=== PATIENT | female | born 2000 | race Caucasian/White ===

== ENCOUNTER 2024-07-01 10:36 | Emergency (ER) | payer BC, SELFPAY ==
[2024-07-01 10:44] VITALS: BP 118/76; PULSE 92; RESP 18; TEMP 36.7; O2SAT 99; BMI 43.2
--- NOTE | 2024-07-01 11:06 | ED.GENADULT ---
HPI - General Adult General Date Seen: 07/01/24 Chief complaint: Abdominal Pain Stated complaint: cramping-6 weeks Time Seen by Provider: 07/01/24 11:05 History of Present Illness HPI narrative: 24-year-old , generally healthy female who is . She is currently 6 weeks 4 days and is confident about LMP and predicted ovulation. She presents to the ER this morning for evaluation of abdominal cramping that woke her up from sleep in the middle the night. She has been having some intermittent left lower quadrant pain for the past several days but she was awoken from sleep last night with a more intense episode of left lower quadrant cramping. It has now spread more generally to her abdomen. It is in her left lower quadrant, primarily. She is not having any vaginal bleeding, vaginal discharge, or fluid leakage. She was able to take Tylenol at night for the cramping and was able to go back to sleep. However the pain is not really gone away today. She talked to the triage line and they sent her here to the ER. She is scheduled for her 1st checkup on July 17 but has not seen obstetric so yet. She has no previous abdominal surgeries. No other GI pathologies such as Crohn's disease. Bowel movements have been normal lately. She has been mildly nauseous but not vomiting. She had a little bit of burning with urination last night but no other urinary symptoms. No hematuria. No vaginal bleeding or discharge. Related Data Home Medications ?Medication ?Instructions ?Recorded ?Confirmed albuterol sulfate 90 mcg/actuation 1 - 2 puff inhalation Q4H PRN 07/01/24 07/01/24 aerosol inhaler wheezing calcium carbonate 2 tab PO .Every other day 07/01/24 07/01/24 Allergies Allergy/AdvReac Type Severity Reaction Status Date / Time No Known Drug Allergies Allergy Verified 07/01/24 11:25 [facility] Social History Smoking Status: Never smoker Do you use any of these nicotine containing products: None How often do you have a drink containing alcohol: never AUDIT-C Alcohol total score: 0 Non-prescribed substance use: denies use Exam Narrative: Exam Narrative: Constitutional: Appears well-developed and well-nourished. Alert. Conversant. Non toxic. HENT: Head: Atraumatic. Nose: Nose normal. Mouth/Throat: Oral mucosa is clear and moist. no trismus. Pharynx normal. Eyes: Conjunctivae normal. EOM normal. Pupils equal, round, and reactive to light. No scleral icterus. Neck: Normal range of motion. Neck supple. No tracheal deviation present. Cardiovascular: Normal rate, regular rhythm. No gallop. No friction rub. No murmur heard. Symmetric radial artery pulses Pulmonary/Chest: Effort normal. No stridor. No respiratory distress. No wheezes. No rales. No rhonchi . No tenderness. Abdominal: Soft. Bowel sounds normal. No distension. No mass. Left lower quad> left upper quadrant or right lower quadrant> epigastric and barium tenderness. She is quite tender in the left lower quadrant and winces with palpation No rebound. No guarding. No CVA tenderness Musculoskeletal: RUE: Normal range of motion. No tenderness. No deformity LUE: Normal range of motion. No tenderness. No deformity RLE: Normal range of motion. No edema. No tenderness. No deformity LLE: Normal range of motion. No edema. No tenderness. No deformity Neurological: Alert and oriented to person, place, and time. Normal strength. CN II-VII intact. No sensory deficit. GCS eye subscore is 4. GCS verbal subscore is 5. GCS motor subscore is 6. Normal coordination Skin: Skin is warm and dry. No rash noted. No pallor. Normal capillary refill. Psychiatric: Normal mood. Normal affect. Const: Vital Signs, click to edit/add: Vital Signs - 24 hr 07/01/24 10:44 Temperature 98.0 F Pulse Rate [Pulse Oximeter] 92 Respiratory Rate 18 Blood Pressure [Ri ght Upper Arm] 118/76 Pulse Oximetry 99 Oxygen Delivery Me thod Room Air Course Vital Signs Vital signs: Initial Vital Signs Temperature 98.0 F 07/01/24 10:44 Temperature Source Temporal Artery Scan 07/01/24 10:44 Pulse Rate 92 07/01/24 10:44 Respiratory Rate 18 07/01/24 10:44 Blood Pressure 118/76 07/01/24 10:44 Blood Pressure Mean 90 07/01/24 10:44 Blood Pressure Position Sitting 07/01/24 10:44 Pulse Oximetry 99 07/01/24 10:44 Oxygen Delivery Method Room Air 07/01/24 10:44 Vital Signs Temperature 98.0 F 07/01/24 10:44 Pulse Rate 92 07/01/24 10:44 Respiratory Rate 18 07/01/24 10:44 Blood Pressure 118/76 07/01/24 10:44 Pulse Oximetry 99 07/01/24 10:44 Oxygen Delivery Method Room Air 07/01/24 10:44 Temperature 98.0 F 07/01/24 10:44 Pulse Rate 92 07/01/24 10:44 Respiratory Rate 18 07/01/24 10:44 Blood Pressure 118/76 07/01/24 10:44 Pulse Oximetry 99 07/01/24 10:44 Oxygen Delivery Method Room Air 07/01/24 10:44 Medical Decision Making MDM Narrative Medical decision making narrative: Very pleasant 24-year-old female presenting to the ER today with her for evaluation of left lower quadrant cramping and abdominal pain. She is currently about 6 weeks 4 days by LMP . She is not having any vaginal bleeding or fluid leakage. She does note that she has had some pelvic cramping for the past several days but the cramping that happened overnight last night was worse. No other symptoms other than perhaps a little bit of dysuria last night. No fever. No diarrhea. No vomiting. She has not presyncopal or lightheaded or dizzy Workup here shows normal hemoglobin, stable vital signs. No evidence for anemia or internal bleeding. Pelvic ultrasound shows a intrauterine gestational sac, slightly smaller than her estimated dates by LMP. No evidence for any adnexal abnormality to suggest ectopic or any free fluid. She is not having any vaginal bleeding to clearly suggest threatened miscarriage. She knows that her blood type is A positive. Other laboratory workup is reassuring. Urinalysis is essentially negative. Trace leukocyte esterase but no pyuria, negative nitrite. Urine culture pending. White count normal. Overall abdominal exam is tender left lower quadrant but not peritoneal. At this point I do not think she needs CT imaging to look for other causes of abdominal pain such as colitis, diverticulitis, appendicitis. Patient is comfortable with the plan for outpatient monitoring at home. Needs repeat pelvic ultrasound within 5-7 days. She will call the OB office today to arrange an ER follow-up visit. Precautions for return to the ER reviewed. Questions answered. Lab Data Labs: Lab Results 07/01/24 07/01/24 Range/Units 11:31 12:10 WBC 8.25 (4.50-11.00) K/uL RBC 4.64 (4.00-5.20) m/uL Hgb 13.9 (12.0-16.0) gm/dL Hct 41.6 (33.0-51.0) % MCV 90 (80-100) fL MCH 30 (26-34) pg MCHC 33 (32-36) gm/dL RDW Coeff of Antonietta 12.6 (11.5-15.5) % Plt Count 245 (140-440) K/uL Neut % (Auto) 64.5 (42.0-72.0) % Lymph % (Auto) 25.8 (20-44) % Morgan % (Auto) 7.9 (0.0-11.0) % Eos % (Auto) 1.3 (0.0-7.0) % Baso % (Auto) 0.4 (0.0-3.0) % Neut # (Auto) 5.32 (1.7-7.0) K/uL Lymph # (Auto) 2.13 (0.90-2.90) K/uL Morgan # (Auto) 0.70 (0.00-0.90) K/UL Eos # (Auto) 0.11 (0.00-0.50) K/uL Baso # (Auto) 0.03 (0.00-0.30) K/uL Abs Immat Gran (auto) 0.01 (0.00-0.30) K/uL Imm/Tot Granulo (auto) 0.1 % Sodium 137 (135-149) mmol/L Potassium 4.2 (3.6-5.1) mmol/L Chloride 105 (96-114) mmol/L Carbon Dioxide 24 (20-32) mmol/L Anion Gap 8 (7-15) mEq/L BUN 7 (5-24) mg/dL Creatinine 0.6 (0.5-1.5) mg/dL Estimated Creat Clear 128.98 Estimated GFR 128 ml/min Glucose 102 (60-115) mg/dL Calcium 9.3 (8.4-10.6) mg/dL HCG, Quant 67917.00 mIU/mL Urine Color Yellow (Yellow) Urine Appearance Slightly Cloudy A (Clear) Urine pH 6.5 (5.0-8.5) Ur Specific [place] 1.020 (1.000-1.030) Urine Protein Negative (Negative) Urine Glucose (UA) Negative (Negative) Urine Ketones Negative (Negative) Urine Blood Negative (Negative) Urine Nitrite Negative (Negative) Urine Bilirubin Negative (Negative) Urine Urobilinogen 0.2 (0.2-1.0) Ur Leukocyte Esterase Trace A (Negative) Urine RBC 0-2 (0-2) Urine WBC 0-2 (0-5) Ur Squamous Epith Cells Few (None-Few) Amorphous Sediment Moderate A (None) Urine Bacteria Few A (None) Imaging Data US pelvic: Attestation: I have reviewed the pertinent imaging results. Radiologist's impression: IMPRESSION: 1. Single intrauterine gestational sac with estimated gestational age of 5 weeks and 6 days. No pole is visualized, likely secondary to early gestational age. Can consider repeating the examination in 7-10 days. 2. The remainder of the examination is unremarkable. Discharge Plan Discharge Clinical Impression: Abdominal pain, LLQ, First trimester Patient Disposition: Home, Self-Care Condition: Stable Instructions: (ED), Pelvic Pain (ED) Additional Instructions: As we discussed, please come back to the ER right away if you have any concerns, for instance if you have worsening pain, vaginal bleeding, fever, dizziness or lightheadedness,. You can use Tylenol as needed to help with the cramping and pain. You can also try warm packs or cool packs for the cramping. Please follow-up with her Gy[facility] Clinic within 5-7 days for a repeat ultrasound. Remember, if you get worse, come back to the ER right away Prescriptions: No Action albuterol sulfate 90 mcg/actuation HFA aerosol inhaler 1 - 2 puff INHALATION Q4H PRN (Reason: wheezing) calcium carbonate [Tums] 2 tab PO .Every other day Follow Up/Referrals: Provider,Not a Local [Primary Care Provider] - Stand Alone Forms: [employer] Communication Info Instructions
[2024-07-01 11:41] LABS: Basophils Absolute Auto 0.03 K/uL (0.00-0.30); Basophils Percent Auto 0.4 % (0.0-3.0); Eosinophils Absolute Auto 0.11 K/uL (0.00-0.50); Eosinophils Percent Auto 1.3 % (0.0-7.0); Hematocrit 41.6 % (33.0-51.0); Hemoglobin* 13.9 gm/dL (12.0-16.0); Immature Granulocytes Abs Auto 0.01 K/uL (0.00-0.30); Immature Granulocytes Pct Auto 0.1 %; Lymphocytes Absolute Auto 2.13 K/uL (0.90-2.90); Lymphocytes Percent Auto 25.8 % (20-44); Mean Corpuscular HGB Conc 33 gm/dL (32-36); Mean Corpuscular Hemoglobin 30 pg (26-34); Mean Corpuscular Volume 90 fL (80-100); Monocytes Percent Auto 7.9 % (0.0-11.0); Neutrophils Absolute Auto 5.32 K/uL (1.7-7.0); Neutrophils Percent Auto 64.5 % (42.0-72.0); Platelet Count* 245 K/uL (140-440); RDW Coefficient of Variation % 12.6 % (11.5-15.5); Red Blood Count 4.64 m/uL (4.00-5.20); White Blood Count* 8.25 K/uL (4.50-11.00)
[2024-07-01 11:45] LABS: Slide Review Reflex No
[2024-07-01 11:54] LABS: Chloride* 105 mmol/L (96-114); Potassium* 4.2 mmol/L (3.6-5.1); Sodium* 137 mmol/L (135-149)
[2024-07-01 11:57] LABS: Anion Gap 8 mEq/L (7-15); Blood Urea Nitrogen* 7 mg/dL (5-24); Calcium* 9.3 mg/dL (8.4-10.6); Carbon Dioxide* 24 mmol/L (20-32); Creatinine* 0.6 mg/dL (0.5-1.5); Est. Creatinine Clearance* 128.98; Estimated Glomerular Filt Rate 128 ml/min; Glucose* 102 mg/dL (60-115)
--- OUTSIDE RECORDS SUMMARY | 2024-07-01 12:16 | XMS_ITS | Encounter Summary ---
Author Organization [facility] Address [address] [place] [address]. [place] [address] Care Team Providers Care Quill Collector Name Role Phone No Ref-Primary, Physician Primary Care Provider Montse Bucio APRN POLICE CLERK Unavailable [phone] Encounter Details Date Type Department Care Team (Late st Contact Info) Description 02/22/2024 MyC Medical Advice [facility] [address] [place] [address] Montse Bucio APRN POLICE CLERK [address] [place], [place] [id number] Social History Tobacco Use Types Packs/Day Years Used Date Smoking Tobacco: Never Smokeless Tobacco: Never PHQ-2 Answer Date Recorded PHQ-2 Score 0 02/20/2024 Food Insecurity Answer Date Recorded Within the past 12 months, d id you worry that your food would run out before you got money to buy more? No 02/20/2024 Within the past 12 months, d id the food you bought just not last and you didn t have money to get more? No 02/20/2024 Housing Stability Answer Date Recorded Do you have housing? (Rioin g is defined as stable permanent housing and does not include staying ouside in a car, in a tent, in an abandoned building, in an overnight assisted, or couch-surfing.) Yes 02/20/2024 Are you worried about losing your housing? No 02/20/2024 Financial Resource Strain Answer Date R ecorded Within the past 12 months, h ave you or your family members you live with been unable to get utilities (heat, electricity) when it was really needed? No 02/20/2024 Transportation Needs Answer Date Record ed Within the past 12 months, h as lack of transportation kept you from medical appointments, getting your medicines, non-medical meetings or appointments, work, or from getting things that you need? No 02/20/2024 Interpersonal Safety Answer Date Record ed Do you feel physically and e motionally safe where you currently live? Yes 02/20/2024 Within the past 12 months, h ave you been hit, slapped, kicked or otherwise physically hurt by someone? No 02/20/2024 Within the past 12 months, h ave you been humiliated or emotionally abused in other ways by your partner or ex-partner? No 02/20/2024 Comments No Sex and Gender Information Value Date Recorded Sex Assigned at Female 02/20/2024 7:49 AM CDT Legal Sex Female 11:15 AM CDT Gender Identity Female 02/20/2024 7:49 AM CDT Sexual Orientation Not on file documented as of this encounter Plan of Treatment Not on file documented as of this encounter Visit Diagnoses Not on filedocumented in this encounter Care Teams Quill Collector Relationship Specialty Start Date End Date No Ref-Primary, Physician PCP - General 11/12/23 Montse Bucio APRN CNP [id number] [place] [address] Assigned PCP 03/22/24 documented as of this encounter
--- OUTSIDE RECORDS SUMMARY | 2024-07-01 12:16 | XMS_ITS | Clinical Summary ---
Author Organization [facility] Address [address] [place] [address]. [place] [address] Care Team Providers Care Information Systems Director Name Role Phone No Ref-Primary, Physician Primary Care Provider Montse Bucio APRN FUR BLOWER Unavailable [phone] Allergies No known active allergies Medications neomycin-polymy olivier-hydrocortis one (CORTISPORIN) 3.5-99343-5 otic solutionIndicat ions:Infective otitis externa, left Place 3 drops in ear(s) 4 times daily. 10 mL 4 Active albuterol (PROAIR HFA/PROVENTIL HFA/VENTOLIN HFA) 108 (90 Base) MCG/ACT inhalerIndicati ons:Bronchitis with acute wheezing Inhale 2 puffs into the lungs every 6 hours as needed for shortness of breath, wheezing or cough. 18 g 4 Active terbinafine (LAMISIL) 1 % external creamIndication s:Intertrigo Apply topically 2 times daily. 15 g 2 4 Active fluticasone-ruth anterol (BREO ELLIPTA) 200-25 MCG/ACT inhalerIndicati ons:Subacute cough Inhale 1 puff into the lungs daily. 1 each 3 4 Active Active Problems Problem Noted Date Diagnosed Date Acanthosis nigricans, acquired 05/10/2018 Immunizations Name Administration Dates Next Due Comvax (HIB/HepB) 1999,1999 DT (PEDS <7y) 12/20/2004 DTAP (<7y) 12/20/2004, 2,1999,10/12,1999 HEPATITIS A (PEDS 12M-18Y) 10/26/2014,11/05/2013 HIB, Unspecified 08/15/2000,1999, 0 HPV Quadrivalent 02/07/2013,08/30/2012, 3 Hepatitis B, Peds 08/15/2000,1999,08/18/19 00 Influenza (IIV3) PF 02/07/2013, 0,01/16/2009,07/01 Influenza Vaccine >6 months,quad, PF 02/17/2023, 02/19/2021 Influenza,INJ,MDCK,PF,Quad >6mo(Flucelvax) 03/03/2022 MMR 12/20/2004,08/15/2000 Meningococcal ACWY (Menactra ) 01/24/2017,11/05/2013 Pneumococcal (PCV 7) 1999,1999 Poliovirus, inactivated (IPV) 12/20/2004 ,1999,1999,08/17 TDAP (Adacel,Boostrix) 01/03/2023,11/20/2011 Social History Tobacco Use Types Packs/Day Years Used Date Smoking Tobacco: Never Smokeless Tobacco: Never Tobacco Cessation:Counseling Given: Not Answered PHQ-2 Answer Date Recorded PHQ-2 Score 0 [...] in an abandoned building, in an overnight detention, or couch-surfing.) Yes 02/20/2024 Are you worried [...] AM CDT Sexual Orientation Not on file Last Filed Vital Signs Vital Sign Reading Time Taken Comments Blood Pressure 118/80 02/20/2024 10:03 AM CDT Pulse 84 02/20/2024 10:03 AM CDT Temperature 37.2 C (98.9 F) 02/20/2024 10:03 AM CDT Respiratory Rate 24 02/20/2024 10:03 AM CDT Oxygen Saturation 100% 02/20/2024 10:03 AM CDT Inhaled Oxygen Concentration - - Weight 115.7 kg (255 lb) 02/20/2024 10:03 AM CDT Height 165.1 cm (5' 5) 02/20/2024 10:03 AM CDT Body Mass Index 42.43 02/20/2024 10:03 AM CDT Plan of Treatment Health Maintenance Due Date Last Done Comments ADVANCE CARE PLANNING 1999 ANNUAL REVIEW OF HM ORDERS 1999 HIV SCREENING 2014 HEPATITIS C SCREENING 2017 PAP 2020 YEARLY PREVENTIVE VISIT 08/06/2021 08/07/19 21, 10/26/2014, 11/05/2013 COVID-19 Vaccine ( season) 2023 03/03/2022, 03/16/2021, 08/19/2020, Additional history exists INFLUENZA VACCINE (#1) 2023 , 03/03/2022, 02/19/2021, Additional history exists PHQ-2 (once per calendar year) 2024 02/20/2024 DTAP/TDAP/TD IMMUNIZATION (8 - Td or Tdap) 01/03/2033 01/03/2023, 11/20/2011, 12/20/2004, Additional history exists ZOSTER IMMUNIZATION (1 of 2) 2049 Pneumococcal Vaccine: Pediatrics (0 to 5 Years) and At-Risk Patients (6 to 49 Years) Aged Out 1999, 1999 No longer eligibl e based on patient's age to complete this topic HEPATITIS B IMMUNIZATION Completed 001, 1999, 1999, Additional history exists CHLAMYDIA SCREENING Discontinued 07/26/2012 HPV IMMUNIZATION Completed 02/07/2013, 06/2012, 07/26/2012 MENINGITIS IMMUNIZATION Completed 01/24/2017, 11/05 MENINGITIS B IMMUNIZATION Aged Out No longer eligible based on patient's age to complete this topic Insurance [employer] Care Teams Information Systems Director Relationship Specialty Start Date End Date No Ref-Primary, Physician PCP - General 7/15/24 Montse Bucio APRN [facility] [id number] [place] [address] Assigned PCP 03/22/24
--- OUTSIDE RECORDS SUMMARY | 2024-07-01 12:16 | XMS_ITS | Clinical Summary ---
Author Organization [facility] Address [address] [place] [id number] Care Team Providers Care Oral Surgeon Name Role Phone Pcp, No Primary Care Provider Unavailabl e Allergies No known active allergies Medications silver sulfADIAZINE (SILVADENE) 1 % creamIndications: Sunburn, second degree Apply topically to affected area(s) two times daily. 50 g 4 Active calcium carbonate (Tums) 200 mg calcium (500 mg) chewable tablet Chew 500 mg by mouth 4 times daily if needed. Active cetirizine HCl (ZYRTEC ORAL) Take by mouth once daily if needed. Active predniSONE (DELTASONE) 50 mg tab tabletIndications :Upper respiratory tract infection, unspecified type One po QAM as needed symptoms. 10 Tablet 4 Active codeine-guaiFENes in 10-100 mg/5 mL liquidIndications :Upper respiratory tract infection, unspecified type 2 teaspoons p.o. q8hr as needed for cough/sleep 120 mL 4 Active albuterol HFA (PRO-AIR; VENTOLIN; PROVENTIL) 90 mcg/actuation inhalerIndication s:Influenza-like illness Inhale 1-2 Puffs by mouth every 4 hours if needed for Shortness Of Breath or Wheezing for up to 5 days. 1 Each 5 06/09/19 25 Active Problems Problem Noted Date Diagnosed Date Acanthosis nigricans, acquired 05/10/2018 Acute recurrent maxillary sinusitis 05/10/2018 Encounters Date Type Department Care Team Description 06/04/2024 11:30 AM ACCOUNTING MACHINE OPERATOR Office Visit [facility] [address] [address] [place] [id number] Jerrica Hager PA Weak (Weakness, cough, and stuffy nose. Patient states it has been uncomfortable to take a deep breath. Patient states she has been exposed to RSV and influenza in the past week. Patient states taking Tylenol last night.) 06/04/2024 Travel from Last 3 Months Immunizations Name Administration Dates Next Due COVID-19 vaccine (Moderna 100mcg/0.5mL) PF, MDV 08/19/2020,07/21/2020 DT (Age < 7 years) 12/20/2004 DTaP 12/20/2004, 2,1999,10/12,1999 HIB-HepB (Comvax) 1999,1999 Hepatitis A (Peds) 10/26/2014,11/05/2013 Hepatitis B (Peds) 08/15/2000,1999 Hib Conjugate, Unspecified 08/15/2000,1999 Human Papilloma Virus Vaccine 02/07/2013 ,08/30/2012,07/26/2012,07/26 Inactivated Polio Vaccine 12/20/2004,01/2000,1999,08/17 Influenza, IIV3 (Age >=3 years) 02/08/20 13,02/12/2010,01/16/2009,07/01 Influenza, IIV4 02/17/2023,02/19/2021 Influenza,CCIIV4 PRESERV FREE 03/03/2022 MMR 12/20/2004,08/15/2000 Meningococcal Vaccine (Menactra) 01/24/2017,12/2013 Pneumococcal conj 7-Valent (Prevnar 7) 0,1999 Tdap 01/03/2023,11/20/2011 Family History Medical History Relation Name Comments Good Health Brother Good Health Father Thyroid Disease Mother Good Health Sister Relation Name Status Comments Brother Father Mother Sister Social History Tobacco Use Types Packs/Day Years Used Date Smoking Tobacco: Never Smokeless Tobacco: Never Tobacco Cessation:Counseling Given: No Alcohol Use Standard Drinks/Week Comments No 0 (1 standard drink = 0.6 oz pur e alcohol) PHQ-2 Answer Date Recorded PHQ-2 TOTAL SCORE 0 11/10/2022 Social Connections Answer Date Recorded Do you often feel lonely or isolated from those around you? 0 11/12/2023 Financial Resource Strain Answer Date R ecorded Difficulty of Paying Living Expenses 3 11/12/2023 Difficulty of Paying Living Expenses Not on file 11/12/2023 Food Insecurity Answer Date Recorded Do you worry your food will run out before you are able to buy more? 1 11/12/2023 Transportation Needs Answer Date Record ed Does lack of transportation keep you from medica l appointments? 1 11/12/2023 Does lack of transportation keep you from work, meetings or getting things that you need? 1 11/12/2023 Housing Stability Answer Date Recorded What is your housing situation today? 1 11/12/2023 Utilities Answer Date Recorded Do you have trouble paying f or utilities (for example, heat, electricity, water, phone)? 1 11/12/2023 Comments Unknown Sex and Gender Information Value Date Recorded Sex Assigned at Not on file Legal Sex Female 7:59 AM ACCOUNTING MACHINE OPERATOR Gender Identity Female 10/06/2020 7:14 PM CDT Sexual Orientation Not on file Obstetrics History Last Filed Vital Signs Vital Sign Reading Time Taken Comments Blood Pressure 124/80 06/04/2024 11:34 AM ACCOUNTING MACHINE OPERATOR Pulse 88 06/04/2024 11:34 AM ACCOUNTING MACHINE OPERATOR Temperature 36.4 C (97.6 F) 06/04/2024 11:34 AM ACCOUNTING MACHINE OPERATOR Respiratory Rate 18 06/04/2024 11:3 4 AM ACCOUNTING MACHINE OPERATOR Oxygen Saturation 98% 06/04/2024 11: 34 AM ACCOUNTING MACHINE OPERATOR Inhaled Oxygen Concentration - - Weight 116.1 kg (255 lb 14. 4 oz) 03/07/2024 9:29 AM ACCOUNTING MACHINE OPERATOR Height 167.6 cm (5' 6) 08/30/2023 9:13 AM CDT with shoes on Body Mass Index 41.3 08/30/2023 9:13 AM CDT Plan of Treatment Upcoming Encounters Date Type Department Care Team (Late st Contact Info) Description 07/02/2024 12:45 PM ACCOUNTING MACHINE OPERATOR Phone OB Encounter [facility] [address] [place] [address] Health Maintenance Due Date Last Done Comments HIV for age 15-65 2014 Hepatitis C screening for age 18-79 2017 Pap test for age 21-65 2020 Depression screening for age 12+ 11/11/2023 11/10/2022, 08/08/2020, 08/06/2020, Additional history exists COVID-19 vaccine series ( - 2023- season) 2023 02/17/2023, 03/03/2022, 03/16/2021, Additional history exists Influenza for age 9-49 12/30/2023 , 03/03/2022, 02/19/2021, Additional history exists BMI (ht and wt on same day) for age 18+ 08/29/2024 08/30/2023, 11/10/2022, 11/26/2020, Additional history exists Tetanus booster 01/03/2033 01/03/2023, 11/20/2011 Pneumococcal series for age 6-49 Aged Out 1999, 1999 No longer eligibl e based on patient's age to complete this topic HPV series for age 9-26 Completed 02/08/20 13, 08/30/2012, 07/26/2012, Additional history exists Tdap Completed 01/03/2023, 11/20/2011 Procedures Procedure Name Priority Date/Time Associated Diagnosis Comments COVID/FLU/RSV PANEL Routine 06/04/2024 1 1:54 AM ACCOUNTING MACHINE OPERATOR Influenza-like illness from Last 3 Months Results * COVID/FLU/RSV PANEL (06/04/2024 11:54 AM ACCOUNTING MACHINE OPERATOR) COVID 19 [facility] Negative Negative 06/04/2024 9:49 PM ACCOUNTING MACHINE OPERATOR [facility] INFLUENZA A PCR Negative 5 9:49 PM ACCOUNTING MACHINE OPERATOR [facility] INFLUENZA B PCR Negative 5 9:49 PM ACCOUNTING MACHINE OPERATOR [facility] Respiratory Syncytial Virus Negative 06/04/2024 9:49 PM ACCOUNTING MACHINE OPERATOR [facility] Swab NASOPHARYNGEAL SWAB / Unknown Non-Blood / Unknown 06/04/2024 11:54 AM ACCOUNTING MACHINE OPERATOR 06/04/2024 12:02 PM ACCOUNTING MACHINE OPERATOR us Jerrica OCONNOR MICROBIOLOGY Final Re sult [facility] [address] [place] [address], from Last 3 Months Insurance [facility] [id number] [place] [id number] [address] [address] [id number] [id number] [place] [id number] [facility] Care Teams Oral Surgeon Relationship Specialty Start Date End Date Pcp, No . PCP - General 03/01/12
--- OUTSIDE RECORDS SUMMARY | 2024-07-01 12:16 | XMS_ITS | Encounter Summary ---
Author Organization [place] Address [address] [place] [address]. [place] [address] Care Team Providers Care Driver/Sales Workers Name Role Phone No Ref-Primary, Physician Primary Care Provider Montse Bucio APRN ROLLING MACHINE TENDER Unavailable [phone] Encounter Details Date Type Department Care Team (Late st Contact Info) Description 02/20/2024 MyC Medical Advice [facility] [address] [place] [address] Montse Bucio APRN ROLLING MACHINE TENDER [address] [place], [place] [id number] Social History Tobacco Use Types Packs/Day Years [...] in an abandoned building, in an overnight skilled nursing, or couch-surfing.) Yes 02/20/2024 Are you worried [...] on file documented as of this encounter Miscellaneous Notes * Telephone Encounter - Montse Bucio APRN CNP - 02/22/2024 1:32 PM CDT I phoned patient to assure that she understood that a new inhaler was sent for her. And that she had gotten the message sent in another string. * Telephone Encounter - Elizabeth Keith RN - 02/20/2024 3:12 PM CDT See message. Pt waiting for prednisone prescription to be sent to pharmacy. PA request already submitted to PA team. Resent as high priority and called PA team for urgent assistance. Spoke to Evonne, she will look into this. Elizabeth Keith RN, BSN [facility] documented in this encounter Plan of Treatment Not on file documented as of this encounter Visit Diagnoses Not on filedocumented in this encounter Care Teams Driver/Sales Workers Relationship Specialty Start Date End Date No Ref-Primary, Physician PCP - General 11/12/23 Montse Bucio APRN [facility] [address] [place] [address] Assigned PCP 03/22/24 documented as of this encounter
[2024-07-01 13:17] LABS: Appearance Urine Slightly Cloudy (Clear); Bilirubin Urine Negative (Negative); Blood Urine Negative (Negative); Color Urine Yellow (Yellow); Glucose Urine Negative (Negative); Ketones Urine Negative (Negative); Leukocyte Esterase Urine Trace (Negative); Nitrite Urine Negative (Negative); Protein Urine Negative (Negative); Urobilinogen Urine 0.2 (0.2-1.0); pH Urine 6.5 (5.0-8.5)
[2024-07-01 13:23] LABS: RBC Urine 0-2 (0-2); Squamous Epithelial Cell Urine Few (None-Few); WBC Urine 0-2 (0-5)
[2024-07-01 13:24] LABS: Amorphous Sediment Urine Moderate; Bacteria Urine Few
== END 2024-07-01 13:21 | disposition home or self-care (01) ==
PROVIDERS: Emergency Provider Emergency Medicine
DX: R10.32 Left lower quadrant pain (principal); Z33.1 Pregnant state, incidental
CPT/HCPCS: 36415; 76817; 80048; 81001; 84702; 85025; 87086; 93976; 99283; 99284

== ENCOUNTER 2024-07-17 12:50 | Outpatient (CLI) | payer BC, SELFPAY ==
--- NOTE | 2024-07-17 13:00 | CRLHL7_ITS ---
For Patients: As a result of the Century Cures Act, medical imaging exams and procedure reports are released immediately into your electronic medical record. You may view this report before your referring provider. If you have questions, please contact your health care provider. OB ULTRASOUND LESS THAN 14 WEEKS, 07/17/2024 CLINICAL HISTORY: Dating and viability. COMPARISON: 07/01/2024. TECHNIQUE: Real time tracy scale imaging of the fetus was performed transvaginally. FINDINGS: LMP: 05/17/2024. SUNDAR by LMP: 02/21/2025. GA: 8 weeks 5 days. CRL: 1.7 cm, 8 weeks 0 days. SUNDAR: 02/26/2025. FHR: 169 bpm. GEST SAC: 2.7 cm, appears within normal limits. YOLK SAC: 4.2 mm, appears within normal limits. RIGHT OVARY: 2.6 x 2.2 x 2.1 cm, within normal limits. LEFT OVARY: 3.4 x 2.4 x 2.2 cm, within normal limits. IMPRESSION: 1. Single living intrauterine with sonographic gestational age 8 weeks 0 days and sonographic due date 02/26/2025. 2. Crescentic subchorionic hemorrhage on the left measures 2.2 x 2.1 x 0.4 cm. 3. Simple right paraovarian cyst measures 1.5 x 0.9 x 1.3 cm. Stefano Farr M.D. Diagnostic Radiologist [email or web address] Transcribed: 10:30 am DW/Dictated by: Stefano Farr MD @ 07/18/2024 9:04:00 AM (Electronically Signed)
== END 2024-07-17 12:51 | disposition home or self-care (01) ==
LOC: US 12:52
PROVIDERS: Visit Provider Physician Assistant
DX: Z34.91 Encounter for supervision of normal pregnancy, unspecified, first trimester (principal); O34.81 Maternal care for other abnormalities of pelvic organs, first trimester; N83.291 Other ovarian cyst, right side; Z3A.08 8 weeks gestation of pregnancy
CPT/HCPCS: 76817; 83021; 84443; 86592; 86703; 86704; 86706; 86762; 86787; 86803; 86850; 86900; 86901; 87086; 87340

== ENCOUNTER 2024-07-17 14:29 | Outpatient (CLI) | payer BC, SELFPAY | END 2024-07-17 14:30 | disposition home or self-care (01) | PROVIDERS: Visit Provider Physician Assistant | DX: Z34.91 Encounter for supervision of normal pregnancy, unspecified, first trimester (principal); Z3A.08 8 weeks gestation of pregnancy | CPT/HCPCS: 83020; 83021; 84443; 85660; 86592; 86703; 86704; 86706; 86762; 86787; 86803; 86850; 86900; 86901; 87086; 87340 ==

== ENCOUNTER 2024-08-13 14:45 | Outpatient (CLI) | payer BC, SELFPAY | END 2024-08-13 14:46 | disposition home or self-care (01) | PROVIDERS: Visit Provider Midwife | DX: E03.9 Hypothyroidism, unspecified (principal) | CPT/HCPCS: 84443 ==

== ENCOUNTER 2024-09-04 22:10 | Emergency (ER) | payer BC, SELFPAY ==
--- OUTSIDE RECORDS SUMMARY | 2024-09-04 22:12 | XMS_ITS | Encounter Summary ---
Author Organization [place] Address [address] [place] [address]. [place] [address] Care Team Providers Care Histology Assistant Name Role Phone No Ref-Primary, Physician Primary Care Provider Montse Bucio APRN LUGGAGE MAKER Unavailable [phone] Encounter Details Date Type Department Care Team (Late st Contact Info) Description 02/20/2024 MyC Medical Advice [facility] [address] [place] [address] Montse Bucio APRN LUGGAGE MAKER [address] [place], [place] [phone] Social History Tobacco Use Types Packs/Day Years [...] Answer Date Recorded Do you have housing? (Housin g is defined as stable permanent housing and does not include staying outside in a car, in a tent, in an abandoned building, in an overnight senior care, or couch-surfing.) Yes 02/20/2024 Are you worried [...] look into this. Elizabeth Keith RN, BSN [facility] documented in this encounter Plan of Treatment Not on file documented as of this encounter Visit Diagnoses Not on filedocumented in this encounter Care Teams Histology Assistant Relationship Specialty Start Date End Date No Ref-Primary, Physician PCP - General 11/12/23 Montse Bucio APRN [facility] [address] [place] [address] Assigned PCP 03/22/24 documented as of this encounter
--- OUTSIDE RECORDS SUMMARY | 2024-09-04 22:12 | XMS_ITS | Clinical Summary ---
Author Organization [facility] Address [address] [place] [address] Care Team Providers Care Culinary Chef Name Role Phone Pcp, No Primary Care Provider Unavailabl e Allergies No known active allergies Medications calcium carbonate (Tums) 200 mg calcium (500 mg) chewable tablet Chew 500 mg by mouth 4 times daily if needed. Active cetirizine HCl (ZYRTEC ORAL) Take by mouth once daily if needed. Active albuterol HFA 90 mcg/actuation inhaler Inhale 2 Puffs by mouth every 6 hours if needed. 02/14/20 24 Active levothyroxine 25 mcg tablet Take 1 Tablet by mouth once daily. 07/28/19 25 Active ondansetron 4 mg disintegrating tablet DISSOLVE 1 TABLET IN MOUTH EVERY 8 HOURS NEEDED for nausea and vomiting.* 08/14/19 25 Active promethazine 25 mg tablet TAKE ONE TABLET BY MOUTH EVERY FOUR TO SIX HOURS NEEDED FOR NAUSEA AND VOMITING* 08/20/19 25 Active PNV no.95/ferrous fum/folic ac ( ORAL) Take by mouth. Active amoxicillin 500 mg tabletIndications: Acute bacterial bronchitis Take 2 Tablets (1,000 mg) by mouth three times daily for 5 days. 30 Tablet 08/31/19 25 025 Active silver sulfADIAZINE (SILVADENE) 1 % creamIndications:S unburn, second degree Apply topically to affected area(s) two times daily. 50 g 11/12/19 24 025 Discontin ued(*Yuko ent states no longer taking) predniSONE (DELTASONE) 50 mg tab tabletIndications: Upper respiratory tract infection, unspecified type One po QAM as needed symptoms. 10 Tablet 03/07/20 24 025 Discontin ued(*Yuko ent states no longer taking) codeine-guaiFENesi n 10-100 mg/5 mL liquidIndications: Upper respiratory tract infection, unspecified type 2 teaspoons p.o. q8hr as needed for cough/sleep 120 mL 03/07/20 24 025 Discontin ued(*Yuko ent states no longer taking) Active Problems Problem Noted Date Diagnosed Date Acanthosis nigricans, acquired 05/10/2018 Acute recurrent maxillary sinusitis 05/10/2018 Estimated Date of Delivery Comme nts Yes 02/21/2025 Encounters Date Type Department Care Team Description 08/30/2024 1:05 PM CDT Office Visit [facility] [address] [place] [address] Elle Chavez NP Cough (Complains of cough, sinus congestion and pressure, sore throat x 1 week /Shortness of breath ) 08/30/2024 [place] 07[place]02/2024 [place] [facility] [place] [address] [facility] [place] [address] MD Appointment from Last 3 Months Immunizations Immunization Administration Dates Next Due COVID-19 vaccine (Moderna [...] FREE 03/03/2022 MMR 12/20/2004,08/15/2000 Meningococcal Vaccine (Menactra) 01/24/2017,07/0 12/2013 Pneumococcal conj 7-Valent (Prevnar 7) 0,1999 Tdap [...] example, heat, electricity, water, phone)? 1 11/12/2023 Estimated Date of Delivery Comme nts Yes 02/21/2025 Sex and Gender Information Value Date Recorded Sex Assigned at Not on file Legal Sex Female 7:59 AM HEEL TURNER Gender Identity Female 10/06/2020 7:14 PM CDT Sexual Orientation Not on file Obstetrics History Para Term AB IAB SAB Ectopic Multiple Livin g Live Births 1 Date Outcome GA Total Labor Labor/2nd/3rd Weight Sex Type Anes PTL Nisreen A1 A5 Name Clin Current Last Filed Vital Signs Vital Sign Reading Time Taken Comments Blood Pressure 110/70 08/30/2024 1:07 PM CDT Pulse 102 08/30/2024 1:07 PM CDT Temperature 36.8 C (98.3 F) 08/30/2024 1:07 PM CDT Respiratory Rate 18 06/04/2024 11:3 4 AM HEEL TURNER Oxygen Saturation 99% 08/30/2024 1:07 PM CDT Inhaled Oxygen Concentration - - Weight 112.9 kg (249 lb) 08/30/2024 1:07 PM CDT Height 167.6 cm (5' 6) 08/30/2023 9:13 AM CDT w ith shoes on Body Mass Index 40.19 08/30/2023 9:13 AM CDT Plan of Treatment Health Maintenance Due Date Last Done Comments HIV for age 15-65 2014 Hepatitis C screening for age 18-79 2017 Pap test for age 21-65 2020 Depression screening for age 12+ 11/11/2023 11/10/2022, 08/08/2020, 08/06/2020, Additional history exists COVID-19 vaccine series ( season) 2023 02/17/2023, 03/03/2022, 03/16/2021, Additional history exists BMI (ht and wt on same day) for age 18+ 08/29/2024 08/30/2023, 11/10/2022, 11/26/2020, Additional history exists Influenza Vaccine (Season Ended) 2024 02/17/2023, 03/03/2022, 02/19/2021, Additional history exists RSV vaccine for adults or (1 - Risk 1-dose series) 12/29/2024 Tetanus booster 01/03/2033 01/03/2023, 11/20/2011 Pneumococcal series for age 6-49 Aged Out 1999, 1999 No longer eligibl e based on patient's age to complete this topic HPV series for age 9-26 Completed 02/08/20 13, 08/30/2012, 07/26/2012, Additional history exists Tdap Completed 01/03/2023, 11/20/2011 Insurance [employer] [place] [employer] [id number] [place] [id number] [place] [id number] [id number] [place] [id number] [facility] Care Teams Culinary Chef Relationship Specialty Start Date End Date Pcp, No . PCP - General 03/01/12
--- OUTSIDE RECORDS SUMMARY | 2024-09-04 22:12 | XMS_ITS | Encounter Summary ---
Author Organization [facility] Address [address] [place] [address]. [place] [address] Care Team Providers Care Face Burler Name Role Phone No Ref-Primary, Physician Primary Care Provider Montse Bucio APRN TRANSACTION PROCESSOR Unavailable [phone] Encounter Details Date Type Department Care Team (Late st Contact Info) Description 02/22/2024 MyC Medical Advice [facility] [address] [place] [address] Montse Bucio APRN TRANSACTION PROCESSOR [address] [place], [place] [id number] Social History Tobacco Use Types Packs/Day Years [...] in an abandoned building, in an overnight nursing home, or couch-surfing.) Yes 02/20/2024 Are you worried [...] on filedocumented in this encounter Care Teams Face Burler Relationship Specialty Start Date End Date No Ref-Primary, Physician PCP - General 11/12/23 Montse Bucio APRN TRANSACTION PROCESSOR [address] [place] [address] Assigned PCP 03/22/24 documented as of this encounter
--- OUTSIDE RECORDS SUMMARY | 2024-09-04 22:12 | XMS_ITS | Clinical Summary ---
Author Organization [place] Address [address] [place] [address]. [place] [address] Care Team Providers Care Social Work Faculty Member Name Role Phone No Ref-Primary, Physician Primary Care Provider Montse Bucio APRN SPOTLIGHT OPERATOR Unavailable [phone] Allergies No known active allergies Medications neomycin-polymy olivier-hydrocortis one (CORTISPORIN) 3.5-17835-4 otic solutionIndicat ions:Infective otitis externa, left Place [...] Diagnosed Date Acanthosis nigricans, acquired 05/10/2018 Immunizations Immunization Administration Dates Next Due Comvax (HIB/HepB) 1999,1999 DT (PEDS <7y) 12/20/2004 DTAP (<7y) 12/20/2004, 2,1999,10/12,1999 HIB, Unspecified 08/15/2000,1999, 0 HPV Quadrivalent 02/07/2013,08/30/2012, 3 Hepatitis A (Vaqta/Havrix)(P eds 12m-18y) 10/26/2014,11/05/2013 Hepatitis B, Peds (Engerix-B/Recombivax HB) 08/15/2000,1999,1999 Influenza (IIV3) PF 02/07/2013, 0,01/16/2009,07/01 Influenza Vaccine >6 months,quad, PF 02/17/2023, 02/19/2021 Influenza,INJ,MDCK,PF,Quad >6mo(Flucelvax) 03/03/2022 MMR (MMRII) 12/20/2004,08/15/2000 Meningococcal ACWY (Menactra ) 01/24/2017,11/05/2013 Pneumococcal [...] in an abandoned building, in an overnight halfway, or couch-surfing.) Yes 02/20/2024 Are you worried [...] 2017 PAP 2020 YEARLY PREVENTIVE VISIT 08/06/2021 08/07/19, 10/26/2014, 11/05/2013 COVID-19 Vaccine ( season) 2023 03/03/2022, 03/16/2021, 08/19/2020, Additional history exists PHQ-2 (once per calendar year) 2024 02/20/2024 INFLUENZA VACCINE (Season Ended) 2024 02/17/2023, 03/03/2022, 02/19/2021, Additional history exists DTAP/TDAP/TD IMMUNIZATION (8 - Td or Tdap) [...] this topic Insurance [employer] Care Teams Social Work Faculty Member Relationship Specialty Start Date End Date No Ref-Primary, Physician PCP - General 11/12/23 Montse Bucio APRN [facility] [address] [place] [address] Assigned PCP 03/22/24
[2024-09-04 22:21] VITALS: BP 123/79; PULSE 88; RESP 22; TEMP 36.6; O2SAT 100; BMI 40.8
--- NOTE | 2024-09-04 22:48 | CRLHL7_ITS ---
For Patients: As a result of the Century Cures Act, medical imaging exams and procedure reports are released immediately into your electronic medical record. You may view this report before your referring provider. If you have questions, please contact your health care provider. INDICATION: SOB. TECHNIQUE: Chest 2 views. COMPARISON: None. FINDINGS: Cardiovascular and mediastinum: Heart size is normal. Unremarkable mediastinum. Lungs and pleural spaces: Lungs are clear. No sign of infiltrate or mass. No sign of pleural effusion. No pneumothorax. Bones and soft tissues: No significant findings. IMPRESSION: No acute or significant findings. Dictated by Stefano Galicia MD @ 09/04/2024 11:57:20 PM (Electronically Signed)
--- OUTSIDE RECORDS SUMMARY | 2024-09-04 23:00 | XMS_ITS | Clinical Summary ---
Author Organization [place] Address [address] [place] [address]. [place] [address] Care Team Providers Care Confectionery Laboratory Manager Name Role Phone No Ref-Primary, Physician Primary Care Provider Montse Bucio APRN OFFBEARER Unavailable [phone] Allergies No known active allergies Medications neomycin-polymy olivier-hydrocortis one (CORTISPORIN) 3.5-42075-5 otic solutionIndicat ions:Infective otitis externa, left Place [...] in an abandoned building, in an overnight alf, or couch-surfing.) Yes 02/20/2024 Are you worried [...] this topic Insurance [employer] Care Teams Confectionery Laboratory Manager Relationship Specialty Start Date End Date No Ref-Primary, Physician PCP - General 11/12/23 Montse Bucio APRN [facility] [address] [place] [address] Assigned PCP 03/22/24
--- OUTSIDE RECORDS SUMMARY | 2024-09-04 23:00 | XMS_ITS | Encounter Summary ---
Author Organization [place] Address [address] [place] [address]. [place] [address] Care Team Providers Care Microsoft Net Developer Name Role Phone No Ref-Primary, Physician Primary Care Provider Montse Bucio APRN INTAKE WORKER Unavailable [phone] Encounter Details Date Type Department Care Team (Late st Contact Info) Description 02/22/2024 MyC Medical Advice [facility] [address] [place] [address] Montse Bucio APRN INTAKE WORKER [address] [place], [place] [phone] Social History Tobacco Use Types Packs/Day Years [...] in an abandoned building, in an overnight group home, or couch-surfing.) Yes 02/20/2024 Are you [...] on filedocumented in this encounter Care Teams Microsoft Net Developer Relationship Specialty Start Date End Date No Ref-Primary, Physician PCP - General 11/12/23 Montse Bucio APRN INTAKE WORKER [address] [place] [address] Assigned PCP 03/22/24 documented as of this encounter
--- OUTSIDE RECORDS SUMMARY | 2024-09-04 23:00 | XMS_ITS | Clinical Summary ---
Author Organization [facility] Address [address] [place] [address] Care Team Providers Care Cut Plug Packer Name Role Phone Pcp, No Primary Care [...] Description 08/30/2024 1:05 PM CDT Office Visit [facility] [address] [place] [address] Elle Chavez NP Cough (Complains of cough, sinus congestion and pressure, sore throat x 1 week /Shortness of breath ) 08/30/2024 Travel 07/02/2024 Telephone [facility] [place] [address] [facility] [place] [address] MD Appointment from Last 3 [...] on file Legal Sex Female 7:59 AM FIRE OBSERVER Gender Identity Female 10/06/2020 7:14 PM CDT [...] Respiratory Rate 18 06/04/2024 11:3 4 AM FIRE OBSERVER Oxygen Saturation 99% 08/30/2024 1:07 PM CDT [...] Tdap Completed 01/03/2023, 11/20/2011 Insurance [employer] [place] ADVANTAGE [id number] [place] [id number] [place] [id number] [id number] [place] [id number] [facility] Care Teams Cut Plug Packer Relationship Specialty Start Date End Date Pcp, No . PCP - General 03/01/12
--- OUTSIDE RECORDS SUMMARY | 2024-09-04 23:00 | XMS_ITS | Encounter Summary ---
Author Organization [facility] Address [address] [place] [address]. [place] [address] Care Team Providers Care Rn Private Duty Name Role Phone No Ref-Primary, Physician Primary Care Provider Montse Bucio APRN CORKING MACHINE OPERATOR Unavailable [phone] Encounter Details Date Type Department Care Team (Late st Contact Info) Description 02/20/2024 MyC Medical Advice [facility] [address] [place] [address] Montse Bucio APRN CORKING MACHINE OPERATOR [address] [place], [place] [id number] Social History Tobacco Use Types Packs/Day Years [...] in an abandoned building, in an overnight custodial, or couch-surfing.) Yes 02/20/2024 Are you worried [...] look into this. Elizabeth Keith RN, BSN [facility] documented in this encounter Plan of Treatment Not on file documented as of this encounter Visit Diagnoses Not on filedocumented in this encounter Care Teams Rn Private Duty Relationship Specialty Start Date End Date No Ref-Primary, Physician PCP - General 11/12/23 Montse Bucio APRN [facility] [address] [place] [address] Assigned PCP 03/22/24 documented as of this encounter
--- NOTE | 2024-09-04 23:08 | ED.SOB ---
HPI - SOB/Dyspnea General Date Seen: 09/04/24 Chief Complaint: Shortness of Breath/Dyspnea Stated Complaint: 16 weeks , shortness of breath Time Seen by Provider: 09/04/24 22:36 Source: patient Mode of arrival: ambulatory Limitations: no limitations History of Present Illness HPI Narrative: patient is a 24-year-old female currently 16 weeks presenting to the emergency department for shortness of breath. She states the symptoms have been going on and off for the past couple weeks. She was seen few weeks ago and was tested negative for viral swabs for and was sent home with inhaler but no spacer. Was seen again 6 days ago and was again told it was viral symptoms. She was feeling better 4 days ago but then over the past day symptoms seem to be getting worse again. She feels like she is having intermittent wheezing. Has been told in the past she may have had viral associated asthma but has never had a formal diagnosis of asthma. Is not aware of any sick contacts. She spoke to her OB provider and was told to come to the emergency department for evaluation. She has no history of blood clots. Has not noticed any lower extremity swelling or recent surgeries. States she will occasionally have chest pain when she takes a deep breath on the left side. This is new for her. Has not had any fevers or chills. Denies abdominal pain, diarrhea, constipation, headache, lightheadedness, weakness, numbness. Related Data Home Medications ?Medication ?Instructions ?Recorded ?Confirmed albuterol sulfate 90 mcg/actuation 1 - 2 puff inhalation Q4H PRN 07/01/24 09/04/24 aerosol inhaler wheezing calcium carbonate 2 tab PO .Every other day 07/01/24 08/13/24 FPP-teiz-WG-omega 3-fat com #1 27 cap PO 07/17/24 08/13/24 mg-1 mg-300 mg capsule doxylamine succinate 25 mg tablet 25 mg PO QHS PRN 08/13/24 09/04/24 (Unisom (doxylamine)) Previous Rx's ?Medication ?Instructions ?Recorded levothyroxine 25 mcg tablet 25 mcg PO QDAY #60 tabs 07/25/24 ondansetron 4 mg disintegrating 4 mg PO Q8H PRN nausea and 08/13/24 tablet vomiting #30 tabs promethazine 25 mg tablet 25 mg PO Q4-6H PRN nausea and 08/19/24 vomiting #30 tabs Allergies Allergy/AdvReac Type Severity Reaction Status Date / Time No Known Drug Allergies Allergy Verified 08/13/24 14:19 Review of Systems Status of ROS: Reports: 10 or more systems reviewed and unremarkable except as noted in History and below [facility] History BMI 40.0-44.9, adult ?Z68.41 - Body mass index [BMI] 40.0-44.9, adult (ICD-10) Subclinical hypothyroidism ?E03.8 - Other specified hypothyroidism (ICD-10) Surgical History [place] teeth removed ?K08.409 - Partial loss of teeth, unspecified cause, unspecified class (ICD-10) History of tonsillectomy and adenoidectomy ?Z90.89 - Acquired absence of other organs (ICD-10) Family History Mother Thyroid disease Maternal Grandmother Diabetes Paternal Grandfather Diabetes Paternal Grandmother Breast cancer Social History Narrative: SOCIAL??? Education: Some college? Work: Day care? Partner: , Daquan??? Lives with: Together with ??? Pets: None at home? Abuse: Denies? Special Diet: Denies Ok with a blood transfusion: yes Culture or moravian beliefs: None ?? RISK FACTORS??? Exercise Times/wk: None??? Hx of Depression and/or Anxiety/other mood disorder: None??? Seat Belt Use: Routinely Smoking: Never Alcohol/day: Denies while ? Caffeine: Coffee, inconsistently, few times per week? Drug Use: Denies?? Chicken Pox: Neither as child nor vaccinated?? MRSA: No What is your current living situation?: I presently have a place to live Problems where you live: no known problems In the past 12 months, utilities in danger of being shut off: no In past 12 months, lack of transportation kept you from medical appts, meetings, work, or getting things needed for daily living: no In the past 12 mos, have been you worried that your food would run out before you had money to buy more?: never true In the past 12 mos, the food you bought just didn't last and you didn't have money to buy more?: never true Smoking Status: Never smoker Do you use any of these nicotine containing products: None How often do you have a drink containing alcohol: never AUDIT-C Alcohol total score: 0 Non-prescribed substance use: denies use How often does anyone, including family, friends and others, physically hurt you: never How often does anyone, including family, friends and others, insult or talk down to you: never How often does anyone, including family, friends and others, threaten you with harm: never How often does anyone, including family, friends and others, scream or curse at you: never Exam Narrative: Exam Narrative: Const: Well-nourished, Well-developed, in mild distress Eyes: PERRL, no conjunctival injection, and symmetrical lids HENT: Atraumatic external nose and ears. Moist mucous membranes. Neck: Symmetric, trachea midline, No thyromegaly. CVS: RRR, No murmurs or gallops. Peripheral pulses 2+ and equal in all extremities RESP: Unlabored respiratory effort. Clear to auscultation bilaterally. GI: Nontender/Nondistended, No rebound or guarding. MSK:Extremities w/o deformity, Normal Active ROM Skin: Warm, Dry. No rashes or lesions. Neuro: Normal Muscle tone, No focal neurological deficits. Psych: Awake, Alert, & Oriented x3. Appropriate mood and affect. Const: Vital Signs, click to edit/add: Vital Signs - 24 hr 09/04/24 22:21 Temperature 98 F Pulse Rate [Pulse Oximeter] 88 Respiratory Rate 22 Blood Pressure [Ri ght Upper Arm] 123/79 Pulse Oximetry 100 Oxygen Delivery Me thod Room Air Course Vital Signs Vital signs: Initial Vital Signs Temperature 98 F 09/04/24 22:21 Temperature Source Temporal Artery Scan 09/04/24 22:21 Pulse Rate 88 09/04/24 22:21 Respiratory Rate 22 09/04/24 22:21 Blood Pressure 123/79 09/04/24 22:21 Blood Pressure Mean 93 09/04/24 22:21 Blood Pressure Position Sitting 09/04/24 22:21 Pulse Oximetry 100 09/04/24 22:21 Oxygen Delivery Method Room Air 09/04/24 22:21 Vital Signs Temperature 98 F 09/04/24 22:21 Pulse Rate 88 09/04/24 22:21 Respiratory Rate 22 09/04/24 22:21 Blood Pressure 123/79 09/04/24 22:21 Pulse Oximetry 100 09/04/24 22:21 Oxygen Delivery Method Room Air 09/04/24 22:21 Temperature 98 F 09/04/24 22:21 Pulse Rate 88 09/04/24 22:21 Respiratory Rate 22 09/04/24 22:21 Blood Pressure 123/79 09/04/24 22:21 Pulse Oximetry 100 09/04/24 22:21 Oxygen Delivery Method Room Air 09/04/24 22:21 Medications Administered Medications: Discontinued Medications Generic Name Dose Route Start Last Admin Trade Name Freq PRN Reason Stop Dose Admin Albuterol 2.5 mg 09/04/24 22:48 09/04/24 23:16 Albuterol Sulfate 2.5 Mg/3 Ml Vial.Neb NEB 09/04/24 22:49 2.5 mg ONCE ONE Administration MDM - SOB/Dyspnea MDM Narrative Medical decision making narrative: Patient is a 24-year-old female presenting to the emergency department for shortness of breath. The differential diagnosis of shortness of breath is broad and includes common etiologies such as COPD, asthma, pneumonia, viral syndrome, etc. More serious etiologies considered include PE, CHF, coronary artery disease, pneumothorax, aortic dissection, aortic aneurysm. I did speak to her about concern for a blood clot considering she is and that dyspnea. After a long conversation she would like to get the D-dimer to test for a blood clot but we will also give her albuterol to see if the albuterol will help. I do not hear any wheezing but I figured it is worth Trying. Will also do an EKG and troponin to look for signs of myocarditis or ACS. Chest x-ray ordered to look for signs pneumonia or pneumothorax. While swabs were also ordered. Will also order a BMP and CBC. At this time I concern for aortic dissection or aortic aneurysm is low as she has otherwise normal vital signs. lab work returned showing no acute concerning abnormalities. EKG shows no concerning abnormalities. Her chest x-ray reviewed by myself and the radiologist shows no acute concerning abnormalities. She is feeling much better after the albuterol. She states she feels like she can breathe again. At this time he I believe she is safe for discharge she has a usual and and will give her a spacer for her inhaler. Symptoms all likely viral in nature. Lab Data Labs: Lab Results 09/04/24 09/04/24 09/04/24 Range/Units 22:48 23:10 Unknown WBC 11.93 H (4.50-11.00) K/uL RBC 4.25 (4.00-5.20) m/uL Hgb 12.9 (12.0-16.0) gm/dL Hct 36.9 (33.0-51.0) % MCV 87 (80-100) fL MCH 30 (26-34) pg MCHC 35 (32-36) gm/dL RDW Coeff of Antonietta 13.0 (11.5-15.5) % Plt Count 193 (140-440) K/uL Neut % (Auto) 68.0 (42.0-72.0) % Lymph % (Auto) 20.4 (20-44) % [place] % (Auto) 7.5 (0.0-11.0) % Eos % (Auto) 2.7 (0.0-7.0) % Baso % (Auto) 0.3 (0.0-3.0) % Neut # (Auto) 8.10 H (1.7-7.0) K/uL Lymph # (Auto) 2.40 (0.90-2.90) K/uL [place] # (Auto) 0.90 (0.00-0.90) K/UL Eos # (Auto) 0.30 (0.00-0.50) K/uL Baso # (Auto) 0.00 (0.00-0.30) K/uL Abs Immat Gran (auto) 0.10 (0.00-0.30) K/uL Imm/Tot Granulo (auto) 1.1 % D-Dimer Quant (PE/DVT) 0.14 (0.00-0.50) ug/ml Sodium 136 (135-149) mmol/L Potassium 3.4 L (3.6-5.1) mmol/L Chloride 104 (96-114) mmol/L Carbon Dioxide 19 L (20-32) mmol/L Anion Gap 13 (7-15) mEq/L BUN 6 (5-24) mg/dL Creatinine 0.6 (0.5-1.5) mg/dL Estimated Creat Clear 128.98 Estimated GFR 128 ml/min Glucose 88 (60-115) mg/dL Calcium 9.7 (8.4-10.6) mg/dL SARS-CoV-2 (PCR) Negative SARS-CoV-2 (Negative) Influenza Type A (PCR) Negative PCR FLU A (Negative) Influenza Type B (PCR) Negative PCR FLU B (Negative) RSV (PCR) Negative PCR RSV (Negative) POC Troponin I 0.00 L (0.01-0.04) ng/ml Imaging Data Chest x-ray: Attestation: I have reviewed the pertinent imaging results. Radiologist's impression: No acute or significant findings. Dictated by Stefano Galicia MD @ 09/04/2024 11:57:20 PM ECG Data Attestation: I personally reviewed and interpreted this ECG as follows: Prior ECG tracings: not available for review Interpretation: Normal sinus rhythm with a rate of 88 beats per minute, normal intervals, normal axis, no ST or T-wave abnormalities Discharge Plan Discharge Clinical Impression: Acute viral syndrome Patient Disposition: Home, Self-Care Condition: Improved Instructions: Viral Syndrome (ED) Additional Instructions: make sure to use the spacer when using your inhaler. If symptoms persist I recommend following up with her primary care provider. Return to emergency department for new or worsening symptoms. Prescriptions: No Action SPL-fcgf-DX-omega 3-fat com #1 27-1-300 mg capsule PO Unisom (doxylamine) 25 mg tablet 25 mg PO QHS PRN ondansetron 4 mg tablet,disintegrating 4 mg PO Q8H PRN (Reason: nausea and vomiting) Qty: 30 0RF albuterol sulfate 90 mcg/actuation HFA aerosol inhaler 1 - 2 puff INHALATION Q4H PRN (Reason: wheezing) calcium carbonate [Tums] 2 tab PO .Every other day levothyroxine 25 mcg tablet 25 mcg PO QDAY Qty: 60 0RF promethazine 25 mg tablet 25 mg PO Q4-6H PRN (Reason: nausea and vomiting) Qty: 30 0RF Follow Up/Referrals: Lesvia Pyle CNM [Primary Care Provider] - Stand Alone Forms: MyHealth Info Instructions
[2024-09-04] MEDS: ALBUTEROL SULFATE 2.5 MG/3 ML VIAL.NEB NEB (23:16)
[2024-09-04 23:19] LABS: Basophils Percent Auto 0.3 % (0.0-3.0); Eosinophils Percent Auto 2.7 % (0.0-7.0); Hematocrit 36.9 % (33.0-51.0); Hemoglobin* 12.9 gm/dL (12.0-16.0); Immature Granulocytes Pct Auto 1.1 %; Lymphocytes Percent Auto 20.4 % (20-44); Mean Corpuscular HGB Conc 35 gm/dL (32-36); Mean Corpuscular Hemoglobin 30 pg (26-34); Mean Corpuscular Volume 87 fL (80-100); Monocytes Percent Auto 7.5 % (0.0-11.0); Platelet Count* 193 K/uL (140-440); Red Blood Count 4.25 m/uL (4.00-5.20); White Blood Count* 11.93 K/uL (4.50-11.00)
[2024-09-04 23:31] LABS: Slide Review Reflex No
[2024-09-04 23:34] LABS: Chloride* 104 mmol/L (96-114); Sodium* 136 mmol/L (135-149)
[2024-09-04 23:35] LABS: Potassium* 3.4 mmol/L (3.6-5.1)
[2024-09-04 23:36] LABS: SARS PCR* Negative SARS-CoV-2 (Negative)
[2024-09-04 23:37] LABS: PCR FLU A Negative PCR FLU A (Negative); PCR FLU B Negative PCR FLU B (Negative); PCR RSV Negative PCR RSV (Negative)
[2024-09-04 23:37] LABS: Blood Urea Nitrogen* 6 mg/dL (5-24); Creatinine* 0.6 mg/dL (0.5-1.5); Est. Creatinine Clearance* 128.98; Estimated Glomerular Filt Rate 128 ml/min
[2024-09-04 23:38] LABS: Anion Gap 13 mEq/L (7-15); Calcium* 9.7 mg/dL (8.4-10.6); Carbon Dioxide* 19 mmol/L (20-32); Glucose* 88 mg/dL (60-115)
[2024-09-04 23:55] LABS: D Dimer Quantitative* 0.14 ug/ml (0.00-0.50)
== END 2024-09-05 00:25 | disposition home or self-care (01) ==
PROVIDERS: Emergency Provider Student in an Organized Health Care Education/Training Program; PCP Midwife
DX: B34.9 Viral infection, unspecified (principal); Z3A.16 16 weeks gestation of pregnancy
CPT/HCPCS: 36415; 71046; 80048; 84484; 85025; 85379; 87631; 94640; 99284

== ENCOUNTER 2024-09-24 18:38 | Emergency (ER) | payer BC, SELFPAY ==
--- OUTSIDE RECORDS SUMMARY | 2024-09-24 18:40 | XMS_ITS | Clinical Summary ---
Author Organization [facility] Address [address] [place] [id number] Care Team Providers Care Trash Collector Supervisor Name Role Phone Pcp, No Primary Care [...] ac ( ORAL) Take by mouth. Active NebulizerIndicatio ns:Bronchitis,Mild intermittent asthma with exacerbation (HC) Nebulizer, disposable neb kit x 4, reuseable neb kit x 1, mask x 1, filters x 1. Daily use; Med: albuterol length of need: 99 months 1 Each 09/12/19 25 Active albuterol 0.083% (2.5 mg/3 mL) neb solutionIndication s:Mild intermittent asthma with exacerbation (HC) Inhale 3 mL (2.5 mg) via a nebulizer every 4 hours if needed for Shortness Of Breath or Wheezing. 75 mL 5 12:50 PM CDT 09/12/19 25 Active budesonide 0.5 mg/2 mL neb suspensionIndicati ons:Bronchitis,Mil d intermittent asthma with exacerbation (HC) Inhale 2 mL (0.5 mg) via a nebulizer two times daily for 3 days then inhale once daily for 5 days 22 mL 5 12:50 PM CDT 09/12/19 25 Active metroNIDAZOLE 500 mg tabletIndications: Bacterial vaginosis Take 1 Tablet (500 mg) by mouth two times daily. 14 Tablet 09/21/19 25 Active silver sulfADIAZINE (SILVADENE) 1 % creamIndications:S unburn, second degree Apply topically to affected area(s) two times daily. 50 g 11/12/19 24 025 Discontinu ed(*Patien t states no longer taking) predniSONE (DELTASONE) 50 mg tab tabletIndications: Upper respiratory tract infection, unspecified type One po QAM as needed symptoms. 10 Tablet 03/07/20 24 025 Discontinu ed(*Patien t states no longer taking) codeine-guaiFENesi n 10-100 mg/5 mL liquidIndications: Upper respiratory tract infection, unspecified type 2 teaspoons p.o. q8hr as needed for cough/sleep 120 mL 03/07/20 24 025 Discontinu ed(*Patien t states no longer taking) amoxicillin 500 mg tabletIndications: Acute bacterial bronchitis Take 2 Tablets (1,000 mg) by mouth three times daily for 5 days. 30 Tablet 08/31/19 25 025 cefdinir 300 mg capsuleIndications :Kidney infection Take 1 Capsule (300 mg) by mouth two times daily for 7 days. For infection 14 Capsule 5 12:50 PM CDT 09/12/19 25 025 fluconazole 150 mg tabletIndications: Yeast infection Take 1 Tablet (150 mg) by mouth one time for 1 dose. 1 Tablet 5 3:58 PM CDT 09/20/19 25 025 metroNIDAZOLE 500 mg tabletIndications: Bacterial vaginosis Take 1 Tablet (500 mg) by mouth two times daily for 7 days. 14 Tablet 09/21/19 25 025 Discontinu ed(*Medica tion adjustment ) Hospital, Clinic, or Other Facility Administered Medication Ordered Dose Route Frequency Start Date End Date Status cefTRIAXone (ROCEPHIN) Intramuscular injection 1 gIndications:pyelonephiriti s 1 g IM ONE TIME 09/11/2024 09/11/2024 Ended Active Problems Problem Noted Date Diagnosed Date Acanthosis nigricans, acquired 05/10/2018 Acute recurrent maxillary sinusitis 05/10/2018 Estimated Date of Delivery Comme nts Yes 02/21/2025 Encounters Date Type Department Care Team Description 09/19/2024 3:40 PM CDT Office Visit [facility] [id number] [place] [phone] Oumou Luque, DO Vaginal Problem 09/19/2024 Travel 09/11/2024 10:40 AM CDT Office Visit [facility] [id number] [place] [phone] Marianna Haro PA Flank Pain (right); UTI (Martines when peeing); Asthma (Was diagnosed with bronchitis 08/30 ) 09/11/2024 Travel 08/30/2024 1:05 PM CDT Office Visit [facility] [address] [place] [address] Elle Chavez NP Cough (Complains of cough, sinus congestion and pressure, sore throat x 1 week /Shortness of breath ) 08/30/2024 Travel 07/02/2024 Telephone [facility] [address] [facility] [place] [address] MD Appointment from Last 3 Months Immunizations Immunization Administration Dates Next Due COVID-19 vaccine (Moderna 100mcg/0.5mL) ROBBIN SALAZAR 08/19/2020,07/21/2020 DT (Age < 7 years) 12/20/2004 DTaP 12/20/2004, 2,1999,10/12,1999 HIB-HepB (Comvax) 1999,1999 Hepatitis A (Peds) 10/26/2014,11/05/2013 Hepatitis B (Peds) 08/15/2000,1999 Hib Conjugate, Unspecified 08/15/2000,1999 Human Papilloma Virus Vaccine 02/07/2013 ,08/30/2012,07/26/2012,07/26 Inactivated Polio Vaccine 12/20/2004,01/2000,1999,08/17 Influenza, IIV3 (Age >=3 years) 02/08/20 13,02/12/2010,01/16/2009,07/01 Influenza, IIV4 02/17/2023,02/19/2021 Influenza,CCIIV4 PRESERV FREE 03/03/2022 MMR 12/20/2004,08/15/2000 Meningococcal Vaccine (Menactra) 01/24/2017,070 12/2013 Pneumococcal conj 7-Valent (Prevnar 7) 0,1999 [...] on file 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 4 oz) 09/19/2024 3:26 PM CDT Height 167.6 cm (5' 6) 08/30/2023 9:13 AM CDT with shoes on Body Mass Index 40.5 08/30/2023 9:13 AM CDT Plan of Treatment [...] on patient's age to complete this topic Hepatitis B series for 19+ Completed 08/15, 1999, 1999, Additional history exists HPV series for age 9-26 Completed 02/08/20 13, 08/30/2012, 07/26/2012, Additional history exists Tdap Completed 01/03/2023, 11/20/2011 Procedures Procedure Name Priority Date/Time Associated Diagnosis Comments TRICHOMONAS, EMILIE, AND BACTERIAL VAGINOSIS BY IRENE Routine 09/19/2024 4:21 PM CDT Yeast infection SC BLOOD COUNT COMPLETE AUTO&AUTO DIFRNTL WBC Routine 09/11/2024 11:47 AM CDT Right flank pain ISTAT CHEM 8 Routine 09/11/2024 11:47 AM CDT Right flank pain UA W/ SEDIMENT EXAM REFLEXED PER CRITERIA STAT 09/11/2024 10:43 AM CDT Dysuria URINE CULTURE Routine 09/11/2024 10:42 AM CDT Dysuria from Last 3 Months Results * (ABNORMAL) TRICHOMONAS, EMILIE, AND BACTERIAL VAGINOSIS BY IRENE [[id number]] - vaginal (09/19/2024 4:21 PM CDT) EMILIE SPECIES Positive(A) Negative 09/21/19 1:54 PM CDT [facility] EMILIE GLABRATA Negative Negative 09/20/2024 1:54 PM CDT [facility] TRICHOMONAS VVA Negative Negative 1:54 PM CDT [facility] BACTERIAL VAGINOSIS Positive(A) Negative 09/20/2024 1:54 PM CDT [facility] Other VAGINAL SWAB / Unknown Non-Blood / Unknown 09/19/2024 4:21 PM CDT 09/19/2024 4:21 PM CDT Oumou Luque DO MICROBIOLOGY Fin al Result [facility] [address] [place] [address], [place] * (ABNORMAL) CHEM8 BMP ISTAT [[id number]] (09/11/2024 11:47 AM CDT) POCT, SODIUM, ISTAT 139 138 - 146 mmol/L [facility] (U POCT, POTASSIUM, ISTAT 3.8 3.5 - 4.9 mmol/L [facility] (U POCT, CHLORIDE, ISTAT 105 98 - 109 mmol/L [facility] (U POCT, CARBON DIOXIDE, ISTAT 20(L) 24 - 29 mmol/L [facility] (U POCT, GLUCOSE ISTAT 97 70 - 105 mg/dL [facility] (U POCT, UREA NITROGEN (BUN) ISTAT 3(L) 8 - 26 mg/dL [facility] (U POCT,CREATININE , ISTAT 0.7 0.6 - 1.3 mg/dL [facility] (U POCT, CALCIUM, IONIZED, ISTAT 5.0 4.5 - 5.3 mg/dL [facility] (U Blood BLOOD SPECIMEN / Unknown 09/11/2024 11:47 AM CDT 09/11/2024 11:48 AM CDT Marianna OCONNOR CHEMISTRY Final Resu lt [facility] [address] [place] [address], [facility] (U [address] [place] [address] * (ABNORMAL) CBC & DIFF [02221.0] (09/11/2024 11:47 AM CDT) WHITE BLOOD CELL COUNT 14.7(H) 3.8 - 10.8 Thousand/ uL [facility] (U RED BLOOD CELL COUNT 4.32 3.80 - 5.10 Million/u L [facility] (U HEMOGLOBIN 12.9 11.7 - 15.5 g/dL [facility] (U HEMATOCRIT 38.2 35.0 - 45.0 % [facility] (U MCV 88.4 80.0 - 100.0 fL [facility] (U MCH 29.9 27.0 - 33.0 pg [facility] (U MCHC 33.8 32.0 - 36.0 g/dL [facility] (U Comment: For adults, a slight decrease in the calculated MCHC value (in the range of 30 to 32 g/dL) is most likely not clinically significant; however, it should be interpreted with caution in correlation with other red cell parameters and the patient's clinical condition. RDW 13.6 11.0 - 15.0 % [facility] (U PLATELET COUNT 201 140 - 400 Thousand/ uL [facility] (U MPV 11.5 7.5 - 12.5 fL [facility] (U ABSOLUTE NEUTROPHILS 12,333(H) 1,500 - 7,800 cells/uL [facility] ([facility] ABSOLUTE LYMPHOCYTES 1,573 850 - 3,900 cells/uL [facility] (U ABSOLUTE MONOCYTES 647 200 - 950 cells/uL [facility] (U ABSOLUTE EOSINOPHILS 118 15 - 500 cells/uL [facility] (U ABSOLUTE BASOPHILS 29 0 - 200 cells/uL [facility] (U NEUTROPHILS 83.9 % [facility] (U LYMPHOCYTES 10.7 % [facility] (U MONOCYTES 4.4 % [facility] (U EOSINOPHILS 0.8 % [facility] (U BASOPHILS 0.2 % [facility] (U Blood BLOOD SPECIMEN / Unknown 09/11/2024 11:47 AM CDT 09/11/2024 11:48 AM CDT Marianna OCONNOR HEMATOLOGY Final Resu lt [facility] [address] [place] [address], [facility] (U [address] [place] [address] * (ABNORMAL) UA W/ SEDIMENT EXAM REFLEXED PER CRITERIA [[id number]] - STAT (09/11/2024 10:43 AM CDT) COLOR YELLOW YELLOW [facility] (U APPEARANCE CLEAR CLEAR [facility] (U SPECIFIC GRAVITY > OR = 1.030 1.001 - 1.035 [facility] (U PH 5.5 5.0 - 8.0 [facility] (U GLUCOSE NEGATIVE NEGATIVE [facility] (U BILIRUBIN NEGATIVE NEGATIVE [facility] (U KETONES TRACE(A) NEGATIVE [facility] (U OCCULT BLOOD NEGATIVE NEGATIVE [facility] ([facility] PROTEIN NEGATIVE NEGATIVE [facility] (U NITRITE NEGATIVE NEGATIVE [facility] (U LEUKOCYTE ESTERASE TRACE(A) NEGATIVE [facility] (U WBC UA 0-5 < OR = 5 /HPF [facility] ([facility] RBC UA 0-2 < OR = 2 /HPF [facility] (U SQUAMOUS EPITHELIAL CELLS UA 10-20(A) < OR = 5 /HPF [facility] (U BACTERIA UA FEW(A) NONE SEEN /HPF [facility] (U CALCIUM OXALATE CRYSTALS FEW NONE OR FEW /HPF [facility] (U NOTE UA [facility] (U Comment: This urine was analyzed for the presence of WBC, RBC, bacteria, casts, and other formed elements. Only those elements seen were reported. Urine URINE SPECIMEN / Unknown 09/11/2024 10:43 AM CDT 09/11/2024 10:44 AM CDT Houston Boothe URINE Carmen l Result Performing Organization Address City/[facility]/ZIP Co de Phone Number [facility] [address] [place] [address], [facility] (U [address] [place] [address] * URINE CULTURE [25841.2] - routine (09/11/2024 10:42 AM CDT) CULTURE <10,000 CFU/mL multiple organisms 09/12/2024 6:44 PM CDT [facility] Urine URINE SPECIMEN / Unknown Non-Blood / Unknown 09/11/2024 10:42 AM CDT 09/11/2024 10:42 AM CDT Houston Boothe MICROBIOLOGY Carmen l Result [facility] [address] [place] [address], from Last 3 Months Insurance BLUE CROSS [facility] [id number] [place] [address] [place] [id number] [place] [address] [facility] Care Teams Trash Collector Supervisor Relationship Specialty Start Date End Date Pcp, No . PCP - General 03/01/12
--- OUTSIDE RECORDS SUMMARY | 2024-09-24 18:40 | XMS_ITS | Encounter Summary ---
Author Organization [facility] Address [address] [place] [address]. [place] [address] Care Team Providers Care Curing Finisher Name Role Phone No Ref-Primary, Physician Primary Care Provider Montse Bucio APRN IMPROVEMENT SPEC Unavailable [phone] Encounter Details Date Type Department Care Team (Late st Contact Info) Description 02/20/2024 MyC Medical Advice [facility] [address] [place] [address] Montse Bucio APRN IMPROVEMENT SPEC [id number] [place], [place] [id number] Social History Tobacco Use Types Packs/Day Years [...] in an abandoned building, in an overnight [place] [facility], or couch-surfing.) Yes 02/20/2024 Are you worried [...] look into this. Elizabeth Keith RN, BSN [facility] documented in this encounter Plan of Treatment Not on file documented as of this encounter Visit Diagnoses Not on filedocumented in this encounter Care Teams Curing Finisher Relationship Specialty Start Date End Date No Ref-Primary, Physician PCP - General 11/12/23 Montse Bucio APRN [facility] [address] [place] [address] Assigned PCP 03/22/24 documented as of this encounter
--- OUTSIDE RECORDS SUMMARY | 2024-09-24 18:40 | XMS_ITS | Clinical Summary ---
Author Organization [facility] Address [address] [place] [address]. [place] [address] Care Team Providers Care Information Management Manager Name Role Phone No Ref-Primary, Physician Primary Care Provider Montse Bucio APRN TOOTH CUTTER CLUTCH Unavailable [phone] Allergies No known active allergies Medications neomycin-polymy olivier-hydrocortis one (CORTISPORIN) [id number] otic solutionIndicat ions:Infective otitis externa, left Place [...] PREVENTIVE VISIT 08/06/2021 08/07/19, 10/26/2014, 11/05/2013 COVID-19 VACCINE ( season) 2023 03/03/2022, 03/16/2021, 08/19/2020, Additional history exists PHQ-2 (once per calendar year) 2024 02/20/2024 INFLUENZA VACCINE (Season Ended) 2024 02/17/2023, 03/03/2022, 02/19/2021, Additional history exists DTAP/TDAP/TD VACCINE (8 - Td or Tdap) 01/03/2033 01/03/2023, 11/20/2011, 12/20/2004, Additional history exists ZOSTER VACCINE (1 of 2) 2049 PNEUMOCOCCAL VACCINE: PEDIATRICS (0 to 5 YEARS) AND AT-RISK PATIENTS (6 to 49 YEARS) Aged Out 1999, 1999 No longer eligibl e based on patient's age to complete this topic HEPATITIS B VACCINE Completed 08/15/2000, 1999, 1999, Additional history exists CHLAMYDIA SCREENING Discontinued 07/26/2012 HPV VACCINE Completed 02/07/2013, 06/2012, 07/26/2012 MENINGITIS VACCINE Completed 01/24/2017, 11/05/2013 MENINGITIS B VACCINE Aged Out No long er eligible based on patient's age to complete this topic Insurance BLUE PLUS Care Teams Information Management Manager Relationship Specialty Start Date End Date No Ref-Primary, Physician PCP - General 11/12/23 Montse Bucio APRN [employer] [address] [place] [address] Assigned PCP 03/22/24
--- OUTSIDE RECORDS SUMMARY | 2024-09-24 18:40 | XMS_ITS | Encounter Summary ---
Author Organization [facility] Address [address] [place] [address]. [place] [address] Care Team Providers Care Skill Training Program Coordinator Name Role Phone No Ref-Primary, Physician Primary Care Provider Montse Bucio APRN PATIENT INTAKE REPRESENTATIVE Unavailable [phone] Encounter Details Date Type Department Care Team (Late st Contact Info) Description 02/22/[address] [facility] [address] [place] [address] Montse Bucio APRN PATIENT INTAKE REPRESENTATIVE [address] [place], [place] [phone] Social History Tobacco Use Types Packs/Day Years [...] in an abandoned building, in an overnight [facility]ci, or couch-surfing.) Yes 02/20/2024 Are you worried [...] on filedocumented in this encounter Care Teams Skill Training Program Coordinator Relationship Specialty Start Date End Date No Ref-Primary, Physician PCP - General 11/12/23 Montse Bucio APRN PATIENT INTAKE REPRESENTATIVE [address] [place] [address] Assigned PCP 03/22/24 documented as of this encounter
[2024-09-24 18:58] VITALS: BP 129/85; PULSE 98; RESP 20; TEMP 36.8; O2SAT 98; BMI 41.9
[2024-09-24 19:14] LABS: Appearance Urine Clear (Clear); Bilirubin Urine Negative (Negative); Blood Urine Negative (Negative); Color Urine Yellow (Yellow); Glucose Urine Negative (Negative); Ketones Urine Negative (Negative); Leukocyte Esterase Urine Negative (Negative); Nitrite Urine Negative (Negative); Protein Urine Negative (Negative); Specific Gravity Urine >= 1.030 (1.000-1.030); Urobilinogen Urine 0.2 (0.2-1.0)
--- NOTE | 2024-09-24 19:15 | ED.GENADULT ---
HPI - General Adult General Chief complaint: Flank Pain Stated complaint: kidney pain, 19 wks preg Time Seen by Provider: 09/24/24 19:02 Source: patient Mode of arrival: ambulatory Limitations: no limitations History of Present Illness HPI narrative: Patient is a 24-year-old female at 19 weeks gestation presenting with bilateral flank pain. Patient has had bilateral flank pain for approximately 2 weeks. She states that 2 weeks ago she was diagnosed with a kidney infection and was treated with cefdinir for 1 week. She has been off of her antibiotics for 1 week. She was told to come to the emergency department if her pain got worse and when she woke up from her nap today she felt like her pain had gotten worse. She denies dysuria, blood in her urine, vaginal discharge. Patient states that she has constant round ligament pain that is unchanged. The flank pain is unchanged with movement. She denies diarrhea or constipation. She denies fevers or chills. She states that she has had chronic nausea throughout her in this is unchanged. She vomits frequently. Patient also states that the cefdinir gave her a yeast infection and BV so she was treated for that as well. Related Data Home Medications ?Medication ?Instructions ?Recorded ?Confirmed albuterol sulfate 90 mcg/actuation 1 - 2 puff inhalation Q4H PRN 07/01/24 09/24/24 aerosol inhaler wheezing calcium carbonate 2 tab PO .Every other day 07/01/24 09/24/24 [id number] 3-fat com #1 27 cap PO 07/17/24 09/10/24 mg-1 mg-300 mg capsule doxylamine succinate 25 mg tablet 25 mg PO QHS PRN 08/13/24 09/24/24 (Unisom (doxylamine)) metronidazole 500 mg tablet 500 mg PO BID 09/24/24 09/24/24 Previous Rx's ?Medication ?Instructions ?Recorded levothyroxine 25 mcg tablet 25 mcg PO QDAY #60 tabs 07/25/24 ondansetron 4 mg disintegrating 4 mg PO Q8H PRN nausea and 08/13/24 tablet vomiting #30 tabs promethazine 25 mg tablet 25 mg PO Q4-6H PRN nausea and 08/19/24 vomiting #30 tabs Allergies Allergy/AdvReac Type Severity Reaction Status Date / Time No Known Drug Allergies Allergy Verified 09/24/24 18:56 Review of Systems Status of ROS: Reports: 10 or more systems reviewed and unremarkable except as noted in History and below PFSH [facility] Medical History BMI 40.0-44.9, adult ?Z68.41 - Body mass index [BMI] 40.0-44.9, adult (ICD-10) Subclinical hypothyroidism ?E03.8 - Other specified hypothyroidism (ICD-10) Surgical History [place] teeth removed ?K08.409 - Partial loss of teeth, unspecified cause, unspecified class (ICD-10) History of tonsillectomy and adenoidectomy ?Z90.89 - Acquired absence of other organs (ICD-10) Family History Mother Thyroid disease Maternal Grandmother Diabetes Paternal Grandfather Diabetes Paternal Grandmother Breast cancer Social History Narrative: SOCIAL??? Education: Some college? Work: Day care? Partner: , Daquan??? Lives with: Together with ??? Pets: None at home? Abuse: Denies? Special Diet: Denies Ok with a blood transfusion: yes Culture or denominational beliefs: None ?? RISK FACTORS??? Exercise Times/wk: None??? Hx of Depression and/or Anxiety/other mood disorder: None??? Seat Belt Use: Routinely Smoking: Never Alcohol/day: Denies while ? Caffeine: Coffee, inconsistently, few times per week? Drug Use: Denies?? Chicken Pox: Neither as child nor vaccinated?? MRSA: No What is your current living situation?: I presently have a place to live Problems where you live: no known problems In the past 12 months, utilities in danger of being shut off: no In past 12 months, lack of transportation kept you from medical appts, meetings, work, or getting things needed for daily living: no In the past 12 mos, have been you worried that your food would run out before you had money to buy more?: never true In the past 12 mos, the food you bought just didn't last and you didn't have money to buy more?: never true Smoking Status: Never smoker Do you use any of these nicotine containing products: None How often do you have a drink containing alcohol: never AUDIT-C Alcohol total score: 0 Non-prescribed substance use: denies use How often does anyone, including family, friends and others, physically hurt you: never How often does anyone, including family, friends and others, insult or talk down to you: never How often does anyone, including family, friends and others, threaten you with harm: never How often does anyone, including family, friends and others, scream or curse at you: never Exam Narrative: Exam Narrative: Obese, well-developed patient in no acute distress. Alert and oriented. Answers questions appropriately. Mood and affect are appropriate. Thoughts are goal oriented and rational. No tangential or magical thinking noted. Patient speaks in full sentences without needing to catch her breath. Patient does not appear ill or toxic. Vital is stable. Patient is sitting comfortably in bed, appears to be in good spirits. HEENT: Normocephalic atraumatic. Pupils are equally round reactive to light. Extraocular muscles are intact. Conjunctivae are moist without any icterus noted. Moist mucous membranes. Cardiovascular: Heart is regular rate and rhythm S1 and S2 are present without any murmurs. Lungs: Clear to auscultation bilaterally no wheezes rhonchi or rales are appreciated. Patient takes deep breaths without any discomfort. Abdomen: Soft, nondistended with normal bowel sounds. Patient complains of discomfort with palpation anywhere of the abdomen. When I ask her if this is normal she states that yes that this is normal for her and that she is not concerned about the discomfort that endorses throughout the entire abdomen. Of note, she does not appear uncomfortable while endorsing pain the entire abdomen. She also endorses bilateral CVA tenderness, however again does not appear uncomfortable. Extremities: Bilateral lower extremities are without edema. Skin: Well perfused without any obvious rashes. Back: Normal appearance. No pain over the thoracic or lumbar spine. Const: Vital Signs, click to edit/add: Vital Signs - 24 hr 09/24/24 18:58 Temperature 98.2 F Pulse Rate [Pulse Oximeter] 98 Respiratory Rate 20 Blood Pressure [Ri ght Upper Arm] 129/85 Pulse Oximetry 98 Oxygen Delivery Me thod Room Air Course Course ED Course: Per the Patient's history and examination, it seems that her discomfort is more likely musculoskeletal in nature. CBCs entirely normal. BMP does not show any renal dysfunction. UA is entirely normal. CRP is normal. Vital Signs Vital signs: Initial Vital Signs Temperature 98.2 F 09/24/24 18:58 Temperature Source Temporal Artery Scan 09/24/24 18:58 Pulse Rate 98 09/24/24 18:58 Respiratory Rate 20 09/24/24 18:58 Blood Pressure 129/85 09/24/24 18:58 Blood Pressure Mean 99 09/24/24 18:58 Pulse Oximetry 98 09/24/24 18:58 Oxygen Delivery Method Room Air 09/24/24 18:58 Vital Signs Temperature 98.2 F 09/24/24 18:58 Pulse Rate 98 09/24/24 18:58 Respiratory Rate 20 09/24/24 18:58 Blood Pressure 129/85 09/24/24 18:58 Pulse Oximetry 98 09/24/24 18:58 Oxygen Delivery Method Room Air 09/24/24 18:58 Temperature 98.2 F 09/24/24 18:58 Pulse Rate 98 09/24/24 18:58 Respiratory Rate 20 09/24/24 18:58 Blood Pressure 129/85 09/24/24 18:58 Pulse Oximetry 98 09/24/24 18:58 Oxygen Delivery Method Room Air 09/24/24 18:58 Medical Decision Making MDM Narrative Medical decision making narrative: 24-year-old female with bilateral mid back pain. No evidence of infection on today's workup. We discussed heat to the back, gentle stretching and follow-up with OBGYN. Lab Data Lab results reviewed: Yes I reviewed the patient's lab results Labs: Lab Results 09/24/24 09/24/24 Range/Units 18:57 19:20 WBC 9.56 (4.50-11.00) K/uL RBC 4.06 (4.00-5.20) m/uL Hgb 12.3 (12.0-16.0) gm/dL Hct 36.0 (33.0-51.0) % MCV 89 (80-100) fL MCH 30 (26-34) pg MCHC 34 (32-36) gm/dL RDW Coeff of Antonietta 13.3 (11.5-15.5) % Plt Count 182 (140-440) K/uL Neut % (Auto) 71.1 (42.0-72.0) % Lymph % (Auto) 19.7 L (20-44) % [place] % (Auto) 6.8 (0.0-11.0) % Eos % (Auto) 2.0 (0.0-7.0) % Baso % (Auto) 0.2 (0.0-3.0) % Neut # (Auto) 6.80 (1.7-7.0) K/uL Lymph # (Auto) 1.90 (0.90-2.90) K/uL [place]acken # (Auto) 0.70 (0.00-0.90) K/UL Eos # (Auto) 0.19 (0.00-0.50) K/uL Baso # (Auto) 0.02 (0.00-0.30) K/uL Abs Immat Gran (auto) 0.02 (0.00-0.30) K/uL Imm/Tot Granulo (auto) 0.2 % Sodium 137 (135-149) mmol/L Potassium 3.6 (3.6-5.1) mmol/L Chloride 105 (96-114) mmol/L Carbon Dioxide 25 (20-32) mmol/L Anion Gap 7 (7-15) mEq/L BUN 6 (5-24) mg/dL Creatinine 0.6 (0.5-1.5) mg/dL Estimated Creat Clear 128.98 Estimated GFR 128 ml/min Glucose 88 (60-115) mg/dL Calcium 9.6 (8.4-10.6) mg/dL C-Reactive Protein 0.6 (0.5-1.0) mg/dL Urine Color Yellow (Yellow) Urine Appearance Clear (Clear) Urine pH 6.0 (5.0-8.5) Ur Specific [place] >= 1.030 (1.000-1.030) Urine Protein Negative (Negative) Urine Glucose (UA) Negative (Negative) Urine Ketones Negative (Negative) Urine Blood Negative (Negative) Urine Nitrite Negative (Negative) Urine Bilirubin Negative (Negative) Urine Urobilinogen 0.2 (0.2-1.0) Ur Leukocyte Esterase Negative (Negative) Urine RBC 0-2 (0-2) Urine WBC 2-5 (0-5) Ur Squamous Epith Cells Few (None-Few) Urine Bacteria Few A (None) Discharge Plan Discharge Clinical Impression: Back pain Patient Disposition: Home, Self-Care Condition: Stable Additional Instructions: No evidence of infection in urine or blood in today's workup. Recommend gentle heat to the back when you have increased discomfort-not apply heat directly to skin and do not apply heat for more than 20 minutes at a time. Okay to take Tylenol as needed/as directed. Recommend you follow-up with your OBGYN for further management. Prescriptions: No Action [id number] 3-fat com #1 27-1-300 mg capsule PO Unisom (doxylamine) 25 mg tablet 25 mg PO QHS PRN ondansetron 4 mg tablet,disintegrating 4 mg PO Q8H PRN (Reason: nausea and vomiting) Qty: 30 0RF albuterol sulfate 90 mcg/actuation HFA aerosol inhaler 1 - 2 puff INHALATION Q4H PRN (Reason: wheezing) calcium carbonate [Tums] 2 tab PO .Every other day metronidazole 500 mg tablet 500 mg PO BID levothyroxine 25 mcg tablet 25 mcg PO QDAY Qty: 60 0RF promethazine 25 mg tablet 25 mg PO Q4-6H PRN (Reason: nausea and vomiting) Qty: 30 0RF Follow Up/Referrals: Lesvia Pyle CNM [Primary Care Provider, Certified Nurse Photo Mask Cleaner] Stand Alone Forms: MyHealth Info Instructions
[2024-09-24 19:29] LABS: Basophils Absolute Auto 0.02 K/uL (0.00-0.30); Basophils Percent Auto 0.2 % (0.0-3.0); Eosinophils Absolute Auto 0.19 K/uL (0.00-0.50); Hemoglobin* 12.3 gm/dL (12.0-16.0); Immature Granulocytes Abs Auto 0.02 K/uL (0.00-0.30); Immature Granulocytes Pct Auto 0.2 %; Lymphocytes Percent Auto 19.7 % (20-44); Mean Corpuscular HGB Conc 34 gm/dL (32-36); Mean Corpuscular Hemoglobin 30 pg (26-34); Mean Corpuscular Volume 89 fL (80-100); Monocytes Percent Auto 6.8 % (0.0-11.0); Neutrophils Percent Auto 71.1 % (42.0-72.0); Platelet Count* 182 K/uL (140-440); RDW Coefficient of Variation % 13.3 % (11.5-15.5); Red Blood Count 4.06 m/uL (4.00-5.20); White Blood Count* 9.56 K/uL (4.50-11.00)
[2024-09-24 19:30] LABS: Bacteria Urine Few; RBC Urine 0-2 (0-2); Squamous Epithelial Cell Urine Few (None-Few)
[2024-09-24 19:33] LABS: Slide Review Reflex No
[2024-09-24 19:42] LABS: Chloride* 105 mmol/L (96-114); Potassium* 3.6 mmol/L (3.6-5.1); Sodium* 137 mmol/L (135-149)
[2024-09-24 19:45] LABS: Anion Gap 7 mEq/L (7-15); Blood Urea Nitrogen* 6 mg/dL (5-24); Calcium* 9.6 mg/dL (8.4-10.6); Carbon Dioxide* 25 mmol/L (20-32); Creatinine* 0.6 mg/dL (0.5-1.5); Est. Creatinine Clearance* 128.98; Estimated Glomerular Filt Rate 128 ml/min; Glucose* 88 mg/dL (60-115)
[2024-09-24 20:02] LABS: C Reactive Protein* 0.6 mg/dL (0.5-1.0)
== END 2024-09-24 20:13 | disposition home or self-care (01) ==
PROVIDERS: Emergency Provider Family Medicine; PCP Midwife
DX: M54.9 Dorsalgia, unspecified (principal); Z33.1 Pregnant state, incidental
CPT/HCPCS: 36415; 80048; 81001; 85025; 86140; 87086; 99283; 99284

== ENCOUNTER 2024-09-26 11:28 | Outpatient (CLI) | payer BC, SELFPAY | END 2024-09-26 11:29 | disposition home or self-care (01) | LOC: NFLDREF 10-01 00:44 | PROVIDERS: PCP Midwife; Referring Provider Midwife; Visit Provider Advanced Practice Midwife | DX: N20.0 Calculus of kidney (principal) | CPT/HCPCS: 87086 ==

== ENCOUNTER 2024-09-26 11:31 | Outpatient (CLI) | payer BC, SELFPAY ==
--- NOTE | 2024-09-26 12:15 | CRLHL7_ITS ---
For Patients: As a result of the Century Cures Act, medical imaging exams and procedure reports are released immediately into your electronic medical record. You may view this report before your referring provider. If you have questions, please contact your health care provider. INDICATION: Reason For Exam: R10.9 - Unspecified abdominal pain. (Sic) Suspected nephrolithiasis. COMPARISON: None available. TECHNIQUE: Grayscale and color Doppler US of the kidneys and bladder. FINDINGS: Right Kidney: Size: 6.1 x 4.6 x 12.3cm. 1.6cm parenchymal thickness. Echotexture: Normal. Hydronephrosis: Absent. Echogenic foci: 8 mm echogenic foci with associated twinkle artifact on color Doppler located in the right upper pole renal sinus consistent with a nonobstructing nephrolith. Incidental round circumscribed homogeneous echogenic finding without posterior acoustic features located in the anterior cortex of the upper pole of the right kidney measuring 8 x 4 x 10 mm in transverse, AP and craniocaudad dimensions, respectively. Differential diagnostic considerations include an angiomyolipoma. Published management guidelines (https://doi.org/10.1016/j.carj.[email or web address]) recommend follow-up ultrasound in 6-12 months. Left Kidney: Size: 5.8 x 4.4 x 12.3cm. 1.7cm parenchymal thickness. Echotexture: Normal. Hydronephrosis: Absent. Echogenic foci: None. Bladder: Incompletely distended limiting evaluation. No wall thickening or intraluminal lesion is demonstrated. NB: Ultrasound is insensitive for detection of urothelial lesions of the bladder. Diffuse homogeneously increased hepatic parenchymal echotexture is noted incidentally which is consistent with hepatic steatosis. IMPRESSION: 1. Nonobstructing right upper pole nephrolith measuring 8 mm. 2. No hydronephrosis to indicate obstructive uropathy. No other findings to explain pain. 3. Incidental 10 mm right renal cortical finding consistent with an angiomyolipoma for which follow-up ultrasound is recommended in 6-12 months. Alternatively, CT could be performed earlier which may definitively characterize lesion is a fat containing angiomyolipoma and thereby preclude ongoing imaging surveillance. 4. Hepatic steatosis is noted incidentally. Dictated by Duglas Branch MD @ 09/26/2024 12:38:22 PM (Electronically Signed)
== END 2024-09-26 11:32 | disposition home or self-care (01) ==
LOC: US 11:33
PROVIDERS: PCP Midwife; Visit Provider Advanced Practice Midwife
DX: R10.9 Unspecified abdominal pain (principal); N28.9 Disorder of kidney and ureter, unspecified; K76.0 Fatty (change of) liver, not elsewhere classified
CPT/HCPCS: 76770

== ENCOUNTER 2024-10-01 12:02 | Outpatient (CLI) | payer BC, SELFPAY | END 2024-10-01 12:03 | disposition home or self-care (01) | PROVIDERS: PCP Midwife; Visit Provider Advanced Practice Midwife | DX: O99.212 Obesity complicating pregnancy, second trimester (principal); Z3A.19 19 weeks gestation of pregnancy | CPT/HCPCS: 76811 ==

== ENCOUNTER 2024-10-08 13:44 | Outpatient (CLI) | payer BC, SELFPAY | END 2024-10-08 13:45 | disposition home or self-care (01) | LOC: FRMREF 13:46 | PROVIDERS: PCP Midwife; Visit Provider Advanced Practice Midwife | DX: E03.8 Other specified hypothyroidism (principal) | CPT/HCPCS: 84443 ==

== ENCOUNTER 2024-10-26 11:13 | Outpatient (CLI) | payer BC, SELFPAY ==
[2024-10-26] VITALS (9 sets, daily range): BP systolic 118; BP diastolic 69; PULSE 84–95; RESP 16; TEMP 36.9; O2SAT 97–99
--- OUTSIDE RECORDS SUMMARY | 2024-10-26 11:31 | XMS_ITS | Encounter Summary ---
Author Organization [facility] Address [address] [place] [address]. [place] [address] Care Team Providers Care Meat Slicer Name Role Phone No Ref-Primary, Physician Primary Care Provider Montse Bucio APRN FRAME WIRER Unavailable [phone] Encounter Details Date Type Department Care Team (Late st Contact Info) Description 02/22/2024 MyC Medical Advice [facility] [address] [place] [address] Montse Bucio APRN FRAME WIRER [address] [place], [place] [id number] Social History Tobacco Use Types Packs/Day Years [...] on filedocumented in this encounter Care Teams Meat Slicer Relationship Specialty Start Date End Date No Ref-Primary, Physician PCP - General 11/12/23 Montse Bucio APRN FRAME WIRER [address] [place] [address] Assigned PCP 03/22/24 documented as of this encounter
--- OUTSIDE RECORDS SUMMARY | 2024-10-26 11:31 | XMS_ITS | Clinical Summary ---
Author Organization [facility] Address [address] [place] [id number] Care Team Providers Care Spectral Scientist Name Role Phone Pcp, No Primary Care [...] 99 months 1 Each 09/12/19 25 Active Additional Information Patient not taking.Reported on 10/25/2024 albuterol 0.083% (2.5 mg/3 mL) neb solutionIndication s:Mild intermittent asthma with exacerbation (HC) Inhale 3 mL (2.5 mg) via a nebulizer every 4 hours if needed for Shortness Of Breath or Wheezing. 75 mL 09/11/2024 12:50 PM CDT 09/12/19 25 Active budesonide 0.5 mg/2 mL neb suspensionIndicati ons:Bronchitis,Mil d intermittent asthma with exacerbation (HC) Inhale 2 mL (0.5 mg) via a nebulizer two times daily for 3 days then inhale once daily for 5 days 22 mL 09/11/2024 12:50 PM CDT 09/12/19 25 Active Additional Information Patient not taking.Reported on 10/25/2024 metroNIDAZOLE 500 mg tabletIndications: Bacterial vaginosis Take 1 Tablet (500 mg) by mouth two times daily. 14 Tablet 09/21/19 Active Additional Information Patient not taking.Reported on 10/25/2024 clotrimazole 1 % creamIndications:R johan Apply topically to affected area(s) two times daily for 14 days. 30 g 10/26/19 25 025 Active Active Problems Problem Noted Date Diagnosed Date Acanthosis nigricans, acquired 05/10/2018 Acute recurrent maxillary sinusitis 05/10/2018 Estimated Date of Delivery Comme nts Yes 02/21/2025 Encounters Date Type Department Care Team Description 10/25/2024 8:40 AM CDT Office Visit [facility] [id number] [place] [phone] Melo Holt PA Rash 10/25/2024 Travel 09/25/2024 9:45 AM CDT Office Visit [facility] [address] [place] [address] Carlos Alberto Lucas PA Back Pain; Nausea; Abdominal Pain 09/25/2024 Travel 09/19/2024 3:40 PM CDT Office Visit [facility] [address] [place] [address] Oumou Luque, DO Vaginal Problem 09/19/2024 Travel 09/11/2024 10:40 AM CDT Office Visit [facility] [address] [place] [address] Marianna Haro PA Flank Pain (right); UTI (Martines when peeing); Asthma (Was diagnosed with bronchitis 08/30 ) 09/11/2024 Travel 08/30/2024 1:05 PM CDT Office Visit [facility] [address] [place] [address] Reglagne, Elle Mg, INSTRUMENTATION MANAGER Cough (Complains of cough, sinus congestion and pressure, sore throat x 1 week /Shortness of breath ) 08/30/2024 Travel from Last 3 Months Immunizations Immunization Administration [...] on file 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 Gender Identity Female 10/06/2020 7:14 PM CDT Sexual Orientation Not on file Obstetrics History Para Term AB IAB SAB Ectopic Multiple Livin g Live Births 1 Date Outcome GA Total Labor Labor/2nd/3rd Weight Sex Type Anes PTL Nisreen A1 A5 Name Clin Current Last Filed Vital Signs Vital Sign Reading Time Taken Comments Blood Pressure 128/67 10/25/2024 8:57 AM CDT Pulse 100 10/25/2024 8:57 AM CDT Temperature 36.4 C (97.6 F) 10/25/2024 8:57 AM CDT Respiratory Rate 16 10/25/2024 8:57 AM CDT Oxygen Saturation 98% 10/25/2024 8:5 7 AM CDT Inhaled Oxygen Concentration - - Weight 115.3 kg (254 lb 1.6 oz) 10/25/2024 8:57 AM CDT Height 167.6 cm (5' 6) 08/30/2023 9:13 AM CDT with shoes on Body Mass Index 41.01 08/30/2023 9:13 AM CDT Plan of Treatment [...] Procedure Name Priority Date/Time Associated Diagnosis Comments UA W/ SEDIMENT EXAM REFLEXED PER CRITERIA STAT 09/25/2024 9:55 AM CDT Dysuria URINE CULTURE Routine 09/25/2024 9:53 AM CDT Dysuria TRICHOMONAS, EMILIE, AND BACTERIAL VAGINOSIS BY IRENE Routine 09/19/2024 4:21 PM CDT Yeast infection PA BLOOD COUNT COMPLETE AUTO&AUTO DIFRNTL WBC Routine 09/11/2024 11:47 AM CDT Right flank pain ISTAT CHEM 8 Routine 09/11/2024 11:47 AM CDT Right flank pain UA W/ SEDIMENT EXAM REFLEXED PER CRITERIA STAT 09/11/2024 10:43 AM CDT Dysuria URINE CULTURE Routine 09/11/2024 10:42 AM CDT Dysuria from Last 3 Months Results * (ABNORMAL) UA W/ SEDIMENT EXAM REFLEXED PER CRITERIA [76994.2] - STAT (09/25/2024 9:55 AM CDT) Only the most recent of2 resultswithin the time period is included. COLOR YELLOW YELLOW [facility] (U APPEARANCE CLEAR CLEAR [facility] (U SPECIFIC GRAVITY 1.020 1.001 - 1.035 [facility] (U PH 6.5 5.0 - 8.0 [facility] (U GLUCOSE NEGATIVE NEGATIVE [facility] (U BILIRUBIN NEGATIVE NEGATIVE [facility] (U KETONES NEGATIVE NEGATIVE [facility] (U OCCULT BLOOD NEGATIVE NEGATIVE [facility] (U PROTEIN NEGATIVE NEGATIVE [facility] (U NITRITE NEGATIVE NEGATIVE [facility] (U LEUKOCYTE ESTERASE TRACE(A) NEGATIVE [facility] (U WBC UA 0-5 < OR = 5 /HPF [facility] (U RBC UA NONE SEEN < OR = 2 /HPF [facility] (U SQUAMOUS EPITHELIAL CELLS UA 0-5 < OR = 5 /HPF [facility] (U BACTERIA UA NONE SEEN NONE SEEN /HPF [facility] (U NOTE UA [facility] (U Comment: This urine was analyzed for the presence of WBC, RBC, bacteria, casts, and other formed elements. Only those elements seen were reported. Urine URINE SPECIMEN / Unknown 09/25/2024 9:55 AM CDT 09/25/2024 9:55 AM CDT Abel OCONNOR URINE Carmen l Result Performing Organization Address [facility] Co de Phone Number [facility] [address] [place] [address], [facility] (U [address] [place] [address] * URINE CULTURE [[id number]] - routine (09/25/2024 9:53 AM CDT) Only the most recent of2 resultswithin the time period is included. CULTURE <10,000 CFU/mL multiple organisms 09/26/2024 2:21 PM CDT [facility] Urine URINE SPECIMEN / Unknown Non-Blood / Unknown 09/25/2024 9:53 AM CDT 09/25/2024 9:53 AM CDT Abel OCONNOR MICROBIOLOGY Carmen l Result [facility] [address] [place] [address], * (ABNORMAL) TRICHOMONAS, EMILIE, AND BACTERIAL VAGINOSIS BY IRENE [[id number]] - vaginal (09/19/2024 4:21 PM CDT) EMILIE SPECIES Positive(A) Negative 09/21/19 1:54 PM CDT [facility] EMILIE GLABRATA Negative Negative 09/20/2024 1:54 PM CDT [facility] TRICHOMONAS VVA Negative Negative 1:54 PM CDT [facility] BACTERIAL VAGINOSIS Positive(A) Negative 09/20/2024 1:54 PM CDT [facility] Other VAGINAL SWAB / Unknown Non-Blood / Unknown 09/19/2024 4:21 PM CDT 09/19/2024 4:21 PM CDT Oumou Luque DO MICROBIOLOGY Fin al Result [facility] [address] [place] [address], [place] * (ABNORMAL) CHEM8 BMP ISTAT [[id number]] (09/11/2024 11:47 AM CDT) POCT, SODIUM, ISTAT 139 138 - 146 mmol/L [facility] (U POCT, POTASSIUM, ISTAT 3.8 3.5 - 4.9 mmol/L [facility] (U POCT, CHLORIDE, ISTAT 105 98 - 109 mmol/L [facility] (U POCT, CARBON DIOXIDE, ISTAT 20(L) 24 - 29 mmol/L [facility] (U POCT, GLUCOSE ISTAT 97 70 - 105 mg/dL [facility] (U POCT, UREA NITROGEN (BUN) ISTAT 3(L) 8 - 26 mg/dL [facility] (U POCT,CREATININE , ISTAT 0.7 0.6 - 1.3 mg/dL [facility] (U POCT, CALCIUM, IONIZED, ISTAT 5.0 4.5 - 5.3 mg/dL [facility] (U Blood BLOOD SPECIMEN / Unknown 09/11/2024 11:47 AM CDT 09/11/2024 11:48 AM CDT us Marianna OCONNOR CHEMISTRY Final Resu lt [facility] [address] [place] [address], [facility] (U [address] [place] [address] * (ABNORMAL) CBC & DIFF [[id number]] (09/11/2024 11:47 AM CDT) WHITE BLOOD CELL COUNT 14.7(H) 3.8 - 10.8 Thousand/ uL [facility] (U RED BLOOD CELL COUNT 4.32 3.80 - 5.10 Million/u L [facility] (U HEMOGLOBIN 12.9 11.7 - 15.5 g/dL [facility] (U HEMATOCRIT 38.2 35.0 - 45.0 % [facility] (U MCV 88.4 80.0 - 100.0 fL [facility] (U MCH 29.9 27.0 - 33.0 pg [facility] (U MCHC 33.8 32.0 - 36.0 g/dL [facility] (U Comment: For adults, a slight decrease in the calculated MCHC value (in the range of 30 to 32 g/dL) is most likely not clinically significant; however, it should be interpreted with caution in correlation with other red cell parameters and the patient's clinical condition. RDW 13.6 11.0 - 15.0 % [facility] (U PLATELET COUNT 201 140 - 400 Thousand/ uL [facility] (U MPV 11.5 7.5 - 12.5 fL [facility] (U ABSOLUTE NEUTROPHILS 12,333(H) 1,500 - 7,800 cells/uL [facility] (U ABSOLUTE LYMPHOCYTES 1,573 850 - 3,900 cells/uL [facility] (U ABSOLUTE MONOCYTES 647 200 - 950 cells/uL [facility] (U ABSOLUTE EOSINOPHILS 118 15 - 500 cells/uL [facility] (U ABSOLUTE BASOPHILS 29 0 - 200 cells/uL [facility] (U NEUTROPHILS 83.9 % [facility] (U LYMPHOCYTES 10.7 % [facility] (U MONOCYTES 4.4 % [facility] (U EOSINOPHILS 0.8 % [facility] (U BASOPHILS 0.2 % [facility] (U Blood BLOOD SPECIMEN / Unknown 09/11/2024 11:47 AM CDT 09/11/2024 11:48 AM CDT Marianna OCONNOR HEMATOLOGY Final Resu lt [facility] [address] [place] [address], [facility] (U [address] [place] [address] from Last 3 [address] Insurance [address] [address] [facility] [employer] [id number] [place] [address] [place] [address] [phone] [place] [address] [facility] Care Teams Spectral Scientist Relationship Specialty Start Date End Date Pcp, No . PCP - General 03/01/12
--- OUTSIDE RECORDS SUMMARY | 2024-10-26 11:31 | XMS_ITS | Clinical Summary ---
Author Organization [facility] Address [address] [place] [address]. [place] [address] Care Team Providers Care It Programmer Analyst Name Role Phone No Ref-Primary, Physician Primary Care Provider Montse Bucio APRN DOOR LINER Unavailable [phone] Allergies No known active allergies Medications neomycin-polymy olivier-hydrocortis one (CORTISPORIN) 3.5-33370-3 otic solutionIndicat ions:Infective otitis externa, left Place [...] in an abandoned building, in an overnight longterm, or couch-surfing.) Yes 02/20/2024 Are you worried [...] this topic Insurance BLUE PLUS Care Teams It Programmer Analyst Relationship Specialty Start Date End Date No Ref-Primary, Physician PCP - General 11/12/23 Montse Bucio APRN DOOR LINER [address] [place] [address] Assigned PCP 03/22/24
--- OUTSIDE RECORDS SUMMARY | 2024-10-26 11:31 | XMS_ITS | Encounter Summary ---
Author Organization [facility] Address [address] [place] [address]. [place] [address] Care Team Providers Care Furniture Sprayer Name Role Phone No Ref-Primary, Physician Primary Care Provider Montse Bucio APRN BLOOD SPLATTER ANALYST Unavailable [phone] Encounter Details Date Type Department Care Team (Late st Contact Info) Description 02/20/2024 MyC Medical Advice [facility] [address] [place] [address] Montse Bucio APRN BLOOD SPLATTER ANALYST [address] [place], [place] [phone] Social History Tobacco Use Types Packs/Day Years [...] look into this. Elizabeth Keith RN, BSN [facility] documented in this encounter Plan of Treatment Not on file documented as of this encounter Visit Diagnoses Not on filedocumented in this encounter Care Teams Furniture Sprayer Relationship Specialty Start Date End Date No Ref-Primary, Physician PCP - General 11/12/23 Montse Bucio APRN [facility] [address] [place] [address] Assigned PCP 03/22/24 documented as of this encounter
--- NOTE | 2024-10-26 13:25 | PC.OBNST ---
NST Note NST Note Start: 10/26/24 11:20 Freq: ONCE Status: Active Protocol: Document 10/26/24 13:24 MAE (Rec: 10/26/24 13:25 MAE [id number]) NST Note 1 Para (# of births) 0 EDC 02/21/25 Gestational Age In 23 Weeks & 1 Days Weeks & Days Patient Presented Decreased movement with Complaint(s) of Appropriate for Yes Gestational Age RADHA Obregon RN Date 10/26/24 Appropriate for Yes Gestational Age RADHA Alicea RN Date 10/26/24 OB NST charge Yes Complete NST Note Yes via Write Note The provider's electronic signature indicates the NST is reactive/appropriate for gestational age. *Note to provider: If an addendum is required, open the patient's chart and click on the note under the Nurse/Allied Health tab.
== END 2024-10-26 13:25 | disposition home or self-care (01) ==
LOC: OB OUT 11:15 → OB 11:18
PROVIDERS: PCP Midwife; Visit Provider Midwife
DX: O36.8120 Decreased fetal movements, second trimester, not applicable or unspecified (principal); Z3A.23 23 weeks gestation of pregnancy
CPT/HCPCS: 59025; G0463

== ENCOUNTER 2024-10-29 11:44 | Outpatient (CLI) | payer BC, SELFPAY | END 2024-10-29 11:45 | disposition home or self-care (01) | LOC: US 11:44 | PROVIDERS: PCP Midwife; Visit Provider Advanced Practice Midwife | DX: O99.212 Obesity complicating pregnancy, second trimester (principal); Z3A.23 23 weeks gestation of pregnancy | CPT/HCPCS: 76816 ==

== ENCOUNTER 2024-11-27 08:52 | Outpatient (CLI) | payer BC, SELFPAY ==
--- NOTE | 2024-11-27 09:15 | CRLHL7_ITS ---
For Patients: As a result of the Century Cures Act, medical imaging exams and procedure reports are released immediately into your electronic medical record. You may view this report before your referring provider. If you have questions, please contact your health care provider. OB ULTRASOUND SUNDAR by LMP: 02/21/2025. GA: 27 w 5 d. Single. Comparison: 10/29/2024, 10/01/2024, 07/17/2024. INDICATION: Obestiy in . TECHNIQUE: Real time tracy scale imaging of the fetus was performed. Transabdominal. CERVIX: Not visualized. POSITIONING: Vertex. AMNIOTIC FLUID: 4.5 cm. SDP (N: greater than 2 x 1 cm) PLACENTA: Technique: Transabdominal. PLACENTA POSITION: Posterior. DOPPLER: heart rate: 150 bpm. BIOMETRY: BPD: 6.7 cm. 27 w, 1 d, 19.8 percent. HC: 25.1 cm. 27 w, 2 d, 11.1 percent. AC: 23.7 cm. 28 w, 0 d, 50.7 percent. FL: 5.2 cm. 27 w, 4 d, 21 percent. FL/AC ratio: 21.8 percent. HC/AC ratio: 1.1. EFW: 1118 g. Weight: 2 lbs, 7 oz. age by this US: 27 w, 4 d. SUNDAR by this US: 02/22/2025. Percentile by SUNDAR: 37.7 percent. IMPRESSION: 1. Sonographic gestational age 27 weeks 4 days and sonographic due date 02/22/2025. Good correlation with dates. Normal interval growth. 2. Estimated weight 38th percentile. Abdominal circumference 51st percentile. Stefano Farr M.D. Diagnostic Radiologist [email or web address] MAYLIN/eun JR/Dictated by: Stefano Farr MD @ 11/30/2024 9:03:00 PM (Electronically Signed)
== END 2024-11-27 08:53 | disposition home or self-care (01) ==
LOC: US 08:53
PROVIDERS: PCP Midwife; Visit Provider Advanced Practice Midwife
DX: O99.212 Obesity complicating pregnancy, second trimester (principal); Z3A.27 27 weeks gestation of pregnancy
CPT/HCPCS: 76816; 84443; 86592

== ENCOUNTER 2024-12-07 20:10 | Outpatient (CLI) | payer BC, SELFPAY ==
[2024-12-07 20:28] VITALS: BP 110/56; PULSE 90; RESP 18; TEMP 36.4
[2024-12-07] MEDS: METOCLOPRAMIDE 10 MG TABLET PO (20:35)
[2024-12-07 20:49] VITALS: BP 110/53; PULSE 82
[2024-12-07 21:09] VITALS: BP 93/53; PULSE 86
--- NOTE | 2024-12-07 21:21 | PC.OBNST ---
NST Note NST Note Start: 12/07/24 20:11 Freq: ONCE Status: Active Protocol: Document 12/07/24 21:19 ZELDA (Rec: 12/07/24 21:20 ZELDA [id number]) NST Note 1 Para (# of births) 0 EDC 02/21/25 Gestational Age In 29 Weeks & 1 Days Weeks & Days Patient Presented Headache with Complaint(s) of Reactive Yes Appropriate for Yes Gestational Age RN Daria RN Date 12/07/24 Reactive Yes Appropriate for Yes Gestational Age RN Marimar RN Date 12/07/24 OB NST charge Yes Complete NST Note Yes via Write Note The provider's electronic signature indicates the NST is reactive/appropriate for gestational age. *Note to provider: If an addendum is required, open the patient's chart and click on the note under the Nurse/Allied Health tab.
== END 2024-12-07 21:30 | disposition home or self-care (01) ==
LOC: OB OUT 20:10 → OB 20:15
PROVIDERS: PCP Midwife; Visit Provider Advanced Practice Midwife
DX: O26.893 Other specified pregnancy related conditions, third trimester (principal); R51.9 Headache, unspecified; Z3A.29 29 weeks gestation of pregnancy
CPT/HCPCS: 59025; G0463; A9270

== ENCOUNTER 2024-12-10 19:14 | Outpatient (CLI) | payer BC, SELFPAY ==
[2024-12-10] VITALS (13 sets, daily range): BP systolic 115; BP diastolic 67; PULSE 89–101; RESP 16; O2SAT 92–98
--- NOTE | 2024-12-10 21:13 | PC.OBNST ---
NST Note NST Note Start: 12/10/24 19:32 Freq: ONCE Status: Active Protocol: Document 12/10/24 21:12 JRS (Rec: 12/10/24 21:13 JRS No Response) NST Note 1 Para (# of births) 0 EDC 02/21/25 Gestational Age In 29 Weeks & 4 Days Weeks & Days Patient Presented Decreased movement with Complaint(s) of Reactive Yes RN Jadiel Obregon RN Date 12/10/24 Reactive Yes RADHA Yin RN Date 12/10/24 OB NST charge Yes Complete NST Note Yes via Write Note The provider's electronic signature indicates the NST is reactive/appropriate for gestational age. *Note to provider: If an addendum is required, open the patient's chart and click on the note under the Nurse/Allied Health tab.
== END 2024-12-10 21:18 | disposition home or self-care (01) ==
LOC: OB OUT 19:14 → OB 19:26
PROVIDERS: PCP Midwife; Visit Provider Advanced Practice Midwife
DX: O36.8130 Decreased fetal movements, third trimester, not applicable or unspecified (principal); Z3A.29 29 weeks gestation of pregnancy
CPT/HCPCS: 59025; G0463

== ENCOUNTER 2024-12-19 12:49 | Outpatient (CLI) | payer BC, SELFPAY ==
[2024-12-19 12:59] VITALS: PULSE 120; O2SAT 96
[2024-12-19 13:01] VITALS: BP 118/67; PULSE 106
[2024-12-19 13:04] VITALS: PULSE 109; O2SAT 97
[2024-12-19 13:35] LABS: Appearance Urine Clear (Clear)
[2024-12-19] MEDS: LACTATED RINGERS 1000 ML 1,000 ML IV (14:30)
[2024-12-19] MEDS: ACETAMINOPHEN 500 MG TABLET 1000 MG PO (14:42)
[2024-12-19 15:26] VITALS: PULSE 97; O2SAT 98
[2024-12-19 15:27] VITALS: BP 110/66; PULSE 95; RESP 20; TEMP 36.8
--- NOTE | 2024-12-19 16:43 | PC.OBNST ---
NST Note NST Note Start: 12/19/24 13:16 Freq: ONCE Status: Active Protocol: Document 12/19/24 16:40 VMM (Rec: 12/19/24 16:43 VMM [id number]) NST Note 1 Para (# of births) 0 EDC 02/21/25 Gestational Age In 30 Weeks & 6 Days Weeks & Days Patient Presented Pain with Complaint(s) of Other Complaints Patient is seen in the center for flank pain and sharp cramping pain. Reactive Yes Appropriate for Yes Gestational Age RADHA Tirado, RN Date 12/19/24 Reactive Yes Appropriate for Yes Gestational Age RADHA Ricks RN Date 12/19/24 OB NST charge Yes Complete NST Note Yes via Write Note The provider's electronic signature indicates the NST is reactive/appropriate for gestational age. *Note to provider: If an addendum is required, open the patient's chart and click on the note under the Nurse/Allied Health tab.
== END 2024-12-19 15:45 | disposition home or self-care (01) ==
LOC: OB OUT 12:49 → OB 12:50
PROVIDERS: Absent Provider Advanced Practice Midwife; Referring Provider Advanced Practice Midwife; Visit Provider Advanced Practice Midwife
DX: O47.03 False labor before 37 completed weeks of gestation, third trimester (principal); Z3A.30 30 weeks gestation of pregnancy
CPT/HCPCS: 59025; 81003; G0463; A9270; J7120

== ENCOUNTER 2024-12-30 09:28 | Outpatient (CLI) | payer BC, SELFPAY | END 2024-12-30 09:29 | disposition home or self-care (01) | LOC: NFLDREF 09:30 | PROVIDERS: Visit Provider Midwife | DX: R30.0 Dysuria (principal) | CPT/HCPCS: 87086 ==

== ENCOUNTER 2025-01-09 09:12 | Outpatient (CLI) | payer BC, SELFPAY ==
--- NOTE | 2025-01-09 09:15 | CRLHL7_ITS ---
For Patients: As a result of the Century Cures Act, medical imaging exams and procedure reports are released immediately into your electronic medical record. You may view this report before your referring provider. If you have questions, please contact your health care provider. OB ULTRASOUND LMP: 05/17/2024. SUNDAR by LMP: 02/21/2025. GA: 33 w, 6 d. Single. Comparison: 11/27/2024, 10/29/2024, 10/01/2024. INDICATION: High BMI. TECHNIQUE: Real time grayscale imaging of the fetus was performed. Transabdominal. CERVIX: Not visualized. POSITIONING: Breech. AMNIOTIC FLUID: 5.2 cm. SDP (N: greater than 2 x 1 cm) BIOPHYSICAL PROFILE: 2: Gross body movements 2: tone 2: Respiratory activity 2: Amniotic fluid SDP (N: greater than 2 x 1 cm) 12/05: Total score PLACENTA: Technique: Transabdominal. PLACENTA POSITION: Posterior. DOPPLER: heart rate: 141 bpm. BIOMETRY: BPD: 8.2 cm. 32 w, 5 d, 17.2 percent. HC: 31.0 cm. 34 w, 5 d, 34.1 percent. AC: 30.5 cm. 34 w, 3 d, 70.0 percent. FL: 6.5 cm. 33 w, 3 d, 27.5 percent. FL/AC ratio: 21.2 percent. HC/AC ratio: 1.0. EFW: 2325 g. Weight: 5 lbs, 2 oz. age by this US: 33 w, 6 d. SUNDAR by this US: 02/21/2025. Percentile by SUNDAR: 47.2 percent. IMPRESSION: 1. Sonographic gestational age 33 weeks 6 days and sonographic due date 02/21/2025. Good correlation with dates. Normal interval growth. 2. Estimated weight 47th percentile. Abdominal circumference 70th percentile. 3. Normal biophysical profile score 12/05. Stefano Farr M.D. Diagnostic Radiologist [email or web address] MAYLIN/rei minaya/Dictated by: Stefano Farr MD @ 01/09/2025 2:02:00 PM (Electronically Signed)
== END 2025-01-09 09:13 | disposition home or self-care (01) ==
LOC: US 09:12
PROVIDERS: Visit Provider Advanced Practice Midwife
DX: O99.213 Obesity complicating pregnancy, third trimester (principal); Z3A.33 33 weeks gestation of pregnancy
CPT/HCPCS: 76816; 76819

== ENCOUNTER 2025-01-09 10:15 | Outpatient (CLI) | payer BC, SELFPAY | END 2025-01-09 10:16 | disposition home or self-care (01) | LOC: NFLDREF 10:16 | PROVIDERS: Visit Provider Advanced Practice Midwife | DX: E03.8 Other specified hypothyroidism (principal); O99.213 Obesity complicating pregnancy, third trimester; Z3A.33 33 weeks gestation of pregnancy | CPT/HCPCS: 76816; 76819; 84443 ==

== ENCOUNTER 2025-01-15 09:40 | Outpatient (CLI) | payer BC, SELFPAY | END 2025-01-15 09:41 | disposition home or self-care (01) | LOC: NFLDREF 09:41 | PROVIDERS: Visit Provider Advanced Practice Midwife | DX: R30.0 Dysuria (principal) | CPT/HCPCS: 87086 ==

== ENCOUNTER 2025-01-19 10:08 | Outpatient (CLI) | payer BC, SELFPAY ==
--- NOTE | 2025-01-19 10:15 | CRLHL7_ITS ---
For Patients: As a result of the Century Cures Act, medical imaging exams and procedure reports are released immediately into your electronic medical record. You may view this report before your referring provider. If you have questions, please contact your health care provider. LMP: 05/17/2024. SUNDAR by LMP: 02/21/2025. GA: 35w, 2d. Single. INDICATION: Obesity. CERVIX: Not visualized. POSITIONING: Vertex. AMNIOTIC FLUID: 4.4 cm SDP. BIOPHYSICAL PROFILE: Total score: 8. Gross body movements: 2. tone: 2. Respiratory activity: 2. Amniotic fluid: 2. (SDP N: Increase 2 x 1 cm) PLACENTA: Technique: Transabdominal. PLACENTA POSITION: Fundal. DOPPLER: heart rate: 141 bpm. IMPRESSION: Normal biophysical profile 12/05. Stefano Farr M.D. Diagnostic Radiologist [email or web address] bM/Dictated by: Stefano Farr MD @ 01/19/2025 3:46:00 PM (Electronically Signed)
== END 2025-01-19 10:09 | disposition home or self-care (01) ==
LOC: US 10:09
PROVIDERS: Visit Provider Advanced Practice Midwife
DX: O99.213 Obesity complicating pregnancy, third trimester (principal); Z3A.35 35 weeks gestation of pregnancy
CPT/HCPCS: 76819

== ENCOUNTER 2025-01-25 21:46 | Outpatient (CLI) | payer BC, SELFPAY ==
[2025-01-25 22:07] VITALS: BP 118/55; PULSE 102
[2025-01-25 22:09] VITALS: PULSE 101; O2SAT 97
[2025-01-25 22:11] VITALS: TEMP 36.8
[2025-01-25] MEDS: ACETAMINOPHEN 500 MG TABLET 1000 MG PO (22:27)
[2025-01-25] MEDS: MAG HYDROX/ALUMINUM HYD/SIMETH 30 ML ORAL.SUSP PO (22:27)
[2025-01-25 22:29] VITALS: BP 106/57; PULSE 100
[2025-01-25 22:43] LABS: Appearance Urine Slightly Cloudy (Clear)
--- NOTE | 2025-01-25 22:49 | CRLHL7_ITS ---
For Patients: As a result of the Century Cures Act, medical imaging exams and procedure reports are released immediately into your electronic medical record. You may view this report before your referring provider. If you have questions, please contact your health care provider. INDICATION: Upper abdominal pain TECHNIQUE: Ultrasound abdomen limited. Sonographic images of the right upper quadrant were obtained using tracy-scale and color Doppler images. COMPARISON: None FINDINGS: Liver: Hepatomegaly is present measuring 20 cm with moderate fatty infiltration. Gallbladder: No gallstones or sludge seen in the lumen. The gallbladder wall is normal in appearance. No pericholecystic fluid is present. No sonographic Dunham???s sign is present. Common bile duct: 4 mm. No intrahepatic biliary ductal dilatation seen. Pancreas: The visualized portions of the pancreatic head and body are normal in appearance. Right Kidney: 14 cm. There is an echogenic focus at the midzone of the right kidney measuring 11 mm which may represent a small angiomyolipoma. No hydronephrosis or ureterectasis is seen. Vascular: The visualized abdominal aorta and IVC are unremarkable. The visualized portal vein is patent with normal anterograde flow. IMPRESSION: 1. Hepatomegaly is present measuring 20 cm with moderate fatty infiltration. Dictated by Gabriel Roberto MD @ 01/25/2025 11:47:34 PM Dictated by: Gabriel Roberto MD @ 01/25/2025 23:47:41 (Electronically Signed)
--- NOTE | 2025-01-25 23:58 | PC.OBNST ---
NST Note NST Note Start: 01/25/25 23:56 Freq: ONCE Status: Active Protocol: Document 01/25/25 23:56 QUEENIE (Rec: 01/25/25 23:57 QUEENIE No Response) NST Note 1 Para (# of births) 0 EDC 02/21/25 Gestational Age In 36 Weeks & 1 Days Weeks & Days Patient Presented Pain with Complaint(s) of If Pain, describe upper abdominal pain location Reactive Yes Appropriate for Yes Gestational Age RADHA Wright RNC Date 01/25/25 Reactive Yes Appropriate for Yes Gestational Age RADHA Esposito RN Date 01/25/25 OB NST charge Yes Complete NST Note Yes via Write Note The provider's electronic signature indicates the NST is reactive/appropriate for gestational age. *Note to provider: If an addendum is required, open the patient's chart and click on the note under the Nurse/Allied Health tab.
== END 2025-01-25 23:50 | disposition home or self-care (01) ==
LOC: OB OUT 21:47 → OB 21:54
PROVIDERS: Visit Provider Advanced Practice Midwife
DX: O99.213 Obesity complicating pregnancy, third trimester (principal); Z3A.36 36 weeks gestation of pregnancy
CPT/HCPCS: 59025; 76705; 81001; 81003; 87086; G0463; A9270

== ENCOUNTER 2025-01-26 12:56 | Outpatient (CLI) | payer BC, SELFPAY ==
--- NOTE | 2025-01-26 13:00 | CRLHL7_ITS ---
For Patients: As a result of the Cures Act, medical imaging exams and procedure reports are released immediately into your electronic medical record. You may view this report before your referring provider. If you have questions, please contact your health care provider. OB ULTRASOUND LMP: 05/17/2024. SUNDAR by LMP: 02/21/2025. GA: 36 w, 2 d. Single. Comparison: 01/19/2025, 01/09/2025. INDICATION: Obesity. TECHNIQUE: Real time grayscale imaging of the fetus was performed. Transabdominal. CERVIX: Not visualized. POSITIONING: Vertex. AMNIOTIC FLUID: 6.8 cm. SDP (N: greater than 2 x 1 cm) BIOPHYSICAL PROFILE: 2: Gross body movements 2: tone 0: Respiratory activity 2: Amniotic fluid SDP (N: greater than 2 x 1 cm) 6/8: Total score PLACENTA: Technique: Transabdominal. PLACENTA POSITION: Posterior, right wall. DOPPLER: heart rate: 139 bpm. IMPRESSION: Biophysical profile score 6/8. Zero points for respiratory activity as there was minimal breathing present. Stefano Farr M.D. Diagnostic Radiologist [email or web address]/[email or web address] minaya/Dictated by: Stefano Farr MD @ 01/26/2025 4:23:00 PM (Electronically Signed)
== END 2025-01-26 12:57 | disposition home or self-care (01) ==
LOC: US 12:57
PROVIDERS: Visit Provider Advanced Practice Midwife
DX: O99.213 Obesity complicating pregnancy, third trimester (principal); Z3A.36 36 weeks gestation of pregnancy
CPT/HCPCS: 76819

== ENCOUNTER 2025-01-26 14:38 | Outpatient (CLI) | payer BC, SELFPAY | END 2025-01-26 14:39 | disposition home or self-care (01) | LOC: NFLDREF 01-29 07:48 | PROVIDERS: Visit Provider Advanced Practice Midwife | DX: O99.213 Obesity complicating pregnancy, third trimester (principal); Z3A.36 36 weeks gestation of pregnancy | CPT/HCPCS: 76819; 87081; 87653 ==

== ENCOUNTER 2025-02-02 10:12 | Outpatient (CLI) | payer BC, SELFPAY ==
--- NOTE | 2025-02-02 10:15 | CRLHL7_ITS ---
For Patients: As a result of the Century Cures Act, medical imaging exams and procedure reports are released immediately into your electronic medical record. You may view this report before your referring provider. If you have questions, please contact your health care provider. INDICATION: Obesity in . TECHNIQUE: Ultrasound OB pelvis transabdominal. Real-time tracy-scale imaging of the fetus was performed without stress testing. COMPARISON: None. FINDINGS: heart rate: Regular, 154 bpm. position: Cephalic. Placenta: Posterior. Amniotic fluid volume single deepest pocket 5 cm, 2/2. motion 2/2. tone 2/2. breathing movements 2/2. IMPRESSION: Single viable intrauterine with a biophysical profile 12/05. Dictated by Nikolas Garrett MD @ 02/02/2025 4:47:09 PM (Electronically Signed)
== END 2025-02-02 10:13 | disposition home or self-care (01) ==
LOC: US 10:12
PROVIDERS: Visit Provider Advanced Practice Midwife
DX: O99.213 Obesity complicating pregnancy, third trimester (principal); Z3A.37 37 weeks gestation of pregnancy
CPT/HCPCS: 76819

== ENCOUNTER 2025-02-05 20:14 | Outpatient (CLI) | payer BC, SELFPAY ==
[2025-02-05 21:04] VITALS: BP 113/56; PULSE 100; PULSE 101; RESP 18; TEMP 36.6; O2SAT 97
--- NOTE | 2025-02-05 21:11 | W.PM.OBO ---
OB Outpatient HPI History of Present Illness Time Seen by Provider: 21:11 Date Seen: 02/05/25 History of Present Illness: 24 year old at 37.5 weeks gestation who presents with c/o decreased FM. Meds Home Medications and Allergies Home Medications ?Medication ?Instructions ?Recorded ?Confirmed ?Type albuterol sulfate 90 mcg/actuation 1 - 2 puff inhalation Q4H PRN 07/01/24 02/02/25 History aerosol inhaler wheezing Held on 12/19/24. Instructions: Patient uses PRN for colds [id number]-[id number]-omega 3 fatty no.1 27 1 cap PO DAILY 07/17/24 02/05/25 History mg-1 mg-300 mg capsule ondansetron 4 mg disintegrating 4 mg PO Q8H PRN nausea and 08/13/24 02/05/25 Rx tablet vomiting #30 tabs promethazine 25 mg tablet 25 mg PO Q4-6H PRN nausea and 08/19/24 02/05/25 Rx vomiting #30 tabs aspirin 81 mg tablet 81 mg PO QDAY 10/08/24 02/05/25 History omeprazole 20 mg capsule,delayed 20 mg PO QDAY 12/15/24 02/05/25 History release levothyroxine 25 mcg tablet 25 mcg PO QDAY #60 tabs 01/13/25 02/05/25 Rx Allergies Allergy/AdvReac Type Severity Reaction Status Date / Time No Known Drug Allergies Allergy Verified 02/02/25 11:06 [facility] Medical History BMI 40.0-44.9, adult ?Z68.41 - Body mass index [BMI] 40.0-44.9, adult (ICD-10) Subclinical hypothyroidism ?E03.8 - Other specified hypothyroidism (ICD-10) Surgical History [place] teeth removed ?K08.409 - Partial loss of teeth, unspecified cause, unspecified class (ICD-10) History of tonsillectomy and adenoidectomy ?Z90.89 - Acquired absence of other organs (ICD-10) Family History Mother Thyroid disease Maternal Grandmother Diabetes Paternal Grandfather Diabetes Paternal Grandmother Breast cancer Social History Narrative: SOCIAL??? Education: Some college? Work: Day care? Partner: , Daquan??? Lives with: Together with ??? Pets: None at home? Abuse: Denies? Special Diet: Denies Ok with a blood transfusion: yes Culture or mandaen beliefs: None ?? RISK FACTORS??? Exercise Times/wk: None??? Hx of Depression and/or Anxiety/other mood disorder: None??? Seat Belt Use: Routinely Smoking: Never Alcohol/day: Denies while ? Caffeine: Coffee, inconsistently, few times per week? Drug Use: Denies?? Chicken Pox: Neither as child nor vaccinated?? MRSA: No What is your current living situation?: I presently have a place to live Problems where you live: no known problems In the past 12 months, utilities in danger of being shut off: no In past 12 months, lack of transportation kept you from medical appts, meetings, work, or getting things needed for daily living: no In the past 12 mos, have been you worried that your food would run out before you had money to buy more?: never true In the past 12 mos, the food you bought just didn't last and you didn't have money to buy more?: never true Smoking Status: Never smoker Do you use any of these nicotine containing products: None How often do you have a drink containing alcohol: never AUDIT-C Alcohol total score: 0 Non-prescribed substance use: denies use How often does anyone, including family, friends and others, physically hurt you: never How often does anyone, including family, friends and others, insult or talk down to you: never How often does anyone, including family, friends and others, threaten you with harm: never How often does anyone, including family, friends and others, scream or curse at you: never History History 1 Elective abortions Para 0 Spontaneous abortions Hx # Term Pregnancies Ectopic pregnancies Hx # Pregnancies Multiple births Number of Living Children 0 OB - H&P: Exam Physical Exam Vital signs: Temp Pulse Resp BP Pulse Ox 97.8 F 100 18 113/56 L 97 02/05/25 21:04 02/05/25 21:04 02/05/25 21:04 02/05/25 21:04 02/05/25 21:04 Narrative: Vitals Reviewed Constitutional:? Alert and oriented x3 HEENT:? Normocephalic, atraumatic Abdomen:? Soft, nontender, and gravid. NST: 135 bpm/mod variability/ + accelerations/no decelerations/no contractions, but some uterine irritiblity noted. Assessment and Plan Assessment and plan (1) Decreased movement: Status: Acute Plan ASSESSMENT:? 24 at 37.5 weeks gestation? Decreased movement now resolved. Cat 1 FHR tracing PLAN:? 1. d/c to home. keep next scheduled appt which is Sunday. 2. FKC reviewed as well as and labor s/sx. Time Spent with Patient Time with Patient: less than 15 minutes Disposition: Discharge Home to SNF
--- NOTE | 2025-02-05 21:38 | PC.OBNST ---
NST Note NST Note Start: 02/05/25 20:19 Freq: ONCE Status: Active Protocol: Document 02/05/25 21:33 SJM (Rec: 02/05/25 21:38 SJM No Response) NST Note 1 Para (# of births) 0 EDC 02/21/25 Gestational Age In 37 Weeks & 5 Days Weeks & Days Patient Presented Decreased movement with Complaint(s) of Reactive Yes Appropriate for Yes Gestational Age RN lteremeet RN Date 02/05/25 Reactive Yes Appropriate for Yes Gestational Age RN EHjessica RN Date 02/05/25 OB NST charge Yes Complete NST Note Yes via Write Note The provider's electronic signature indicates the NST is reactive/appropriate for gestational age. *Note to provider: If an addendum is required, open the patient's chart and click on the note under the Nurse/Allied Health tab.
== END 2025-02-05 21:30 | disposition home or self-care (01) ==
LOC: OB OUT 20:15 → OB 20:17
PROVIDERS: PCP Midwife, Lay; Visit Provider Midwife, Lay
DX: O36.8130 Decreased fetal movements, third trimester, not applicable or unspecified (principal); Z3A.37 37 weeks gestation of pregnancy
CPT/HCPCS: 59025; G0463

== ENCOUNTER 2025-02-09 10:05 | Outpatient (CLI) | payer BC, SELFPAY ==
--- NOTE | 2025-02-09 10:15 | CRLHL7_ITS ---
For Patients: As a result of the Century Cures Act, medical imaging exams and procedure reports are released immediately into your electronic medical record. You may view this report before your referring provider. If you have questions, please contact your health care provider. LMP: 05/17/2024. SUNDAR by LMP: 02/21/2025. Single. INDICATION: Obesity. CERVIX: Not visualized. POSITIONING: Vertex. AMNIOTIC FLUID: 6.3 cm SDP. BIOPHYSICAL PROFILE: Total score: 8. Gross body movements: 2. tone: 2. Respiratory activity: 2. Amniotic fluid: 2. (SDP N: Increase 2 x 1 cm) PLACENTA: Technique: Transabdominal. PLACENTA POSITION: Posterior. heart rate: 141 bpm. IMPRESSION: Normal biophysical profile 12/05. Stefano Farr M.D. Diagnostic Radiologist [email or web address] bM/Dictated by: Stefano Farr MD @ 02/09/2025 8:43:00 PM (Electronically Signed)
== END 2025-02-09 10:06 | disposition home or self-care (01) ==
LOC: US 10:05
PROVIDERS: PCP Midwife, Lay; Visit Provider Advanced Practice Midwife
DX: O99.210 Obesity complicating pregnancy, unspecified trimester (principal)
CPT/HCPCS: 76819

== ENCOUNTER 2025-02-16 13:17 | Outpatient (CLI) | payer BC, SELFPAY ==
--- NOTE | 2025-02-16 13:15 | CRLHL7_ITS ---
For Patients: As a result of the Century Cures Act, medical imaging exams and procedure reports are released immediately into your electronic medical record. You may view this report before your referring provider. If you have questions, please contact your health care provider. OB ULTRASOUND BIOPHYSICAL PROFILE TRANSABDOMINAL LMP: 05/17/2024. SUNDAR by LMP: 02/21/2025. GA: 39 w, 2 d. Single. Comparison: Ultrasound 02/02/2025, 02/09/2025. INDICATION: Obesity. TECHNIQUE: Real time tracy scale imaging of the fetus was performed. Transabdominal imaging performed. CERVIX: Not visualized. POSITIONING: Vertex. AMNIOTIC FLUID: 7.6 cm SDP (N: greater than 2 x 1 cm). BIOPHYSICAL PROFILE: Gross body movements: 2. tone: 2. Respiratory activity: 2. Amniotic fluid: 2. SDP (N: greater than 2 x 1 cm). Total score: 8. PLACENTA: Technique: Transabdominal. PLACENTA POSITION: Posterior. DOPPLER: heart rate: 169 bpm. IMPRESSION: Normal biophysical profile 12/05. Stefano Farr M.D. Diagnostic Radiologist [email or web address] SP/Dictated by: Stefano Farr MD @ 02/16/2025 5:59:00 PM (Electronically Signed)
== END 2025-02-16 13:18 | disposition home or self-care (01) ==
LOC: US 13:17
PROVIDERS: PCP Midwife, Lay; Visit Provider Advanced Practice Midwife
DX: O99.213 Obesity complicating pregnancy, third trimester (principal); Z3A.39 39 weeks gestation of pregnancy
CPT/HCPCS: 76819

== ENCOUNTER 2025-02-22 07:30 | Outpatient (CLI) | payer BC, SELFPAY ==
[2025-02-22 07:44] VITALS: BP 117/73; PULSE 113
--- NOTE | 2025-02-22 09:37 | PC.OBNST ---
NST Note NST Note Start: 02/22/25 07:38 Freq: ONCE Status: Active Protocol: Document 02/22/25 08:30 LMR (Rec: 02/22/25 09:37 LMR No Response) NST Note 1 Para (# of births) 0 EDC 02/21/25 Gestational Age In 40 Weeks & 1 Days Weeks & Days Patient Presented Contractions/cramping,Pain with Complaint(s) of If Pain, describe Pelvic pain and pressure location Reactive Yes Appropriate for Yes Gestational Age RADHA Andres Date 02/22/25 Reactive Yes Appropriate for Yes Gestational Age RADHA Castaneda Date 02/22/25 OB NST charge Yes Complete NST Note Yes via Write Note The provider's electronic signature indicates the NST is reactive/appropriate for gestational age. *Note to provider: If an addendum is required, open the patient's chart and click on the note under the Nurse/Allied Health tab.
== END 2025-02-22 09:24 | disposition home or self-care (01) ==
LOC: OB OUT 07:31 → OB 07:32
PROVIDERS: PCP Midwife, Lay; Visit Provider Advanced Practice Midwife
DX: O47.1 False labor at or after 37 completed weeks of gestation (principal); Z3A.40 40 weeks gestation of pregnancy
CPT/HCPCS: 59025; G0463

== ENCOUNTER 2025-02-25 11:08 | Inpatient (IN) | payer BC, SELFPAY ==
[2025-02-25] VITALS (11 sets, daily range): BP systolic 128–140; BP diastolic 68–90; PULSE 88–132; RESP 16–22; TEMP 36.6–36.9; O2SAT 96–98; BMI 46.5
--- NOTE | 2025-02-25 12:30 | W.PM.LDBA ---
Subjective History of Present Illness Date Seen: 02/25/25 Narrative: Patient is being admitted to Labor and Delivery for IOL for elevated BMI. She is a 24 year old at 40 1/7 weeks gestation. Her full history and physical was dictated by Sparkle Jewell on 02/02/2025. Please see this for details. She reports good movement, no LOF or uncomfortable contractions, no vaginal bleeding. Her and mother are supporting her in labor. she would like to avoid AROM and pitocin if able, but seems amenable if the situation arises that it is needed. Specific Issues/Plans Partner: , Daquan. H&P: Jessica Jewell on 02/02/25 # Obesity, BMI 42.6 ASA 81mg starting at 12 weeks 20 week level 2 US with MFM completed; testing form completed 10/02 Referral to fire fighter [employer] fire and rescue: Ordered 07/17/24, scheduled then cancelled and declines Referral to anesthesia: completed 11/03 Weekly testing starting at 34 weeks (BPP): pt uncertain if she will do, non scheduled at 35wks but 36-38wks scheduled BMI >45 (anytime during ): Notify MD on on admission-done Growth US at 28 weeks: EFW 38%ile Growth US at 34 weeks: EFW 47%ile Delivery recommended: 39 0/7 - 39 6/7 weeks: declines # Subclinical hypothyroid diagnosed at [facility] -Family history of thyroid disorder -TSH at first OB: 3.57; previous TSH normal in 2020 -07/25/24: prescribed levothyroxine 25mcg daily -Check TSH w/ reflex FT4 at her 12-13wk visit. Goal TSH <2.50.- 1.47 2nd trimester: 2.230, will need refill of levothyroxine at 28 weeks-sent 3rd trimester: 2.070 34wk: 1.34 PLAN: Stop 25mcg dose of levo as soon as births. # Family history down syndrome ('s aunt) -Genetic screening @ 12 week visit, low risk # MMR and Varicella non-immune vaccinate PP # Non obstructing stone dx 09/26/24. Planning Tylenol and hydration but aware that can come for fluids and pain control if pain increases. Declined Flomax. Urology consult placed 10/08 # Incidental 10mm right renal angiomyolipoma. F/U US in 6-[address] earlier which may definitively characterize the lesion precluding ongoing imaging. Will plan to do PP but uncertain which at this time. Encouraged her to establish with a PCP. # Hepatic steatosis noted incidentally. F/U PP with a PCP. # Family history of pyloric stenosis, mother and brother had (both required surgery) #UTI tx by [facility] was not responding to antibiotics, returned to urgent care for retesting 12/06, found to have BV Imaging: Level II (10/01/2024): Impression: 1. Mcduffie intrauterine at 19w 4d gestational age. 2. None of the anomalies commonly detected by ultrasound were evident in the detailed anatomic survey described above, although evaluation of anatomy was suboptimal as noted above. 3. Growth parameters and estimated weight were consistent with appropriate for gestational age pattern of growth. 4. The amniotic fluid volume appeared normal. Recommend a repeat US in ~4 weeks at [facility] in [place] to re-evaluate growth and anatomy, including anatomy that was suboptimally seen today. Level II follow-up (10/29/2024): Impression: 1. Mcduffie at 23w4d gestational age. 2. The remaining anatomic survey was completed, no anomalies commonly detected by ultrasound were identified within the limits of ultrasound. 3. Growth parameters and estimated weight were consistent with gestational age predicted by assigned SUNDAR. 4. The amniotic fluid volume appeared normal. Growth US (11/27/2024): IMPRESSION: 1. Sonographic gestational age 27 weeks 4 days and sonographic due date 02/22/2025. Good correlation with dates. Normal interval growth. 2.Estimated weight 38th percentile. Abdominal circumference 51st percentile. Growth US (01/09/25): 1. Sonographic gestational age 33 weeks 6 days and sonographic due date 02/21/2025. Good correlation with dates. Normal interval growth. 2. Estimated weight 47th percentile. Abdominal circumference 70th percentile. 3. Normal biophysical profile score 12/05. Vaccinations: COVID: declines Flu: 02/02/2025 Tdap: 12/30/2024 RSV: 01/09/2025 Hep B non-immune: Does not work in healthcare, received initial series 32 week mental health: 12/30/24 Last pap: Never had Pap, Plans for Comments: ? OB - Problem Based A/P Additional Plan (1) Supervision of high risk in third trimester: Status: Acute (2) Subclinical hypothyroidism: Status: Acute (3) Obesity affecting : Status: Acute (4) Hepatic steatosis: Status: Acute (5) Nephrolith: Problem details: 8mm Status: Acute (6) Angiomyolipoma of right kidney: Problem details: Incidental 10 mm right renal cortical finding consistent with an angiomyolipoma for which follow-up ultrasound is recommended in 6-12 months. Alternatively, CT could be performed earlier which may definitively characterize lesion is a fat containing angiomyolipoma and thereby preclude ongoing imaging surveillance. Status: Acute Plan ASSESSMENT:?? 24 at 40 4/7 weeks gestation?? complicated by:??Elevated BMI, subclinical hypothyroid, non-obstructing kidney stone, right renal angiomyolipoma (to be followed up PP), BV, hepatic steatosis Labor type: induced, Not yet in labor?? Category 1 FHR pattern.??? Labor complicated by: induction, BMI 46 GBS negative? PLAN:?? 1. Routine intrapartum cares as ordered. Options of cervidil and cytotec, mechanical dilation reviewed. I did recommend starting a ripening agent to hopefully get her to a smith of 8 before starting pitocin. Perhaps this will just kick her into labor and pit won't be needed. 2. Monitoring per policy, continuous 3. Planning unmedicated . Candidate for analgesia of choice.??? 4. Patient encouraged to reposition and ambulate to promote physiologic labor and .?? 5. Dr Osorio notified of patients status and BMI of 46 per policy. Care for patient to continue only with CNMs at this time. 6. Maternal tachycardia noted. Pt encouraged to push fluids. IV bolus may be utilized as indicated. 7. Verified with patient that she has not had asthma diagnosed and only needs albuterol when she has a cold. 8. Pt to continue 25 mcg levothyroxine while daily. She has already taken today. To take her own med tomorrow morning if still . To stop levo as soon as she births. Anticipate Delivery/Labor/Induction Plan Plan: induction Induction method: per misoprostol protocol OB Exam Physical Exam Vital signs: Temp Pulse Resp BP Pulse Ox 98.5 F 102 H 20 136/80 97 02/25/25 11:27 02/25/25 11:33 02/25/25 11:27 02/25/25 11:33 02/25/25 11:32 Narrative: Vitals Reviewed Constitutional:? Alert and oriented x3 HEENT:? Normocephalic, atraumatic Lungs:? Clear to auscultation bilaterally Heart:? Regular rate and rhythm, no murmur, rub or gallop Abdomen:? Soft, nontender, and gravid. Vertex by Jorge's, confirmed with cervical exam. Extremities:? No edema or erythema Cervix: 3 cm/60%/-2 station/vertex with palpable sutures NST: 140 bpm/moderate variability/accelerations present/decelerations absent/contraction pattern reveals irritability
[2025-02-25 13:32] LABS: Hematocrit* 32.6 % (33.0-51.0); Hemoglobin* 10.8 gm/dL (12.0-16.0); Immature Granulocytes Abs Auto 0.04 K/uL (0.00-0.30); Immature Granulocytes Pct Auto 0.4 %; Mean Corpuscular HGB Conc 33 gm/dL (32-36); Mean Corpuscular Hemoglobin 28 pg (26-34); Mean Corpuscular Volume 83 fL (80-100); RDW Coefficient of Variation % 14.2 % (11.5-15.5); Red Blood Count* 3.93 m/uL (4.00-5.20); White Blood Count* 10.38 K/uL (4.50-11.00)
[2025-02-25 13:41] LABS: Lymphocytes Absolute Auto 1.60 K/uL (0.90-2.90); Slide Review Reflex No
[2025-02-25] MEDS: CALCIUM CARBONATE 500 MG CHEW PO (16:17)
--- NOTE | 2025-02-25 21:39 | PM.OBPNL ---
Subjective Date Seen: 02/25/25 Narrative: Patient was admitted to Labor and Delivery for IOL for elevated BMI. She is a 24 year old at 40 1/7 weeks gestation. Her and mother are supporting her in labor. She has received 3 doses of misoprostol with last at 1845. She has concerns about what the next steps are. She has no LOF or vaginal bleeding. She is grimacing a little with some contractions. She has been drinking lots of water Specific Issues/Plans Partner: , Daquan. H&P: Jessica Jewell on 02/02/25 # Obesity, BMI 42.6 ASA 81mg starting at 12 weeks 20 week level 2 US with MFM completed; testing form completed 10/02 Referral to propellant assembler: Ordered 07/17/24, scheduled then cancelled and declines Referral to anesthesia: completed 11/03 Weekly testing starting at 34 weeks (BPP): pt uncertain if she will do, non scheduled at 35wks but 36-38wks scheduled BMI >45 (anytime during ): Notify MD on on admission-done Growth US at 28 weeks: EFW 38%ile Growth US at 34 weeks: EFW 47%ile Delivery recommended: 39 0/7 - 39 6/7 weeks: declines # Subclinical hypothyroid diagnosed at [facility] -Family history of thyroid disorder -TSH at first OB: 3.57; previous TSH normal in 2020 -07/25/24: prescribed levothyroxine 25mcg daily -Check TSH w/ reflex FT4 at her 12-13wk visit. Goal TSH <2.50.- 1.47 2nd trimester: 2.230, will need refill of levothyroxine at 28 weeks-sent 3rd trimester: 2.070 34wk: 1.34 PLAN: Stop 25mcg dose of levo as soon as births. # Family history down syndrome ('s aunt) -Genetic screening @ 12 week visit, low risk # MMR and Varicella non-immune vaccinate PP # Non obstructing stone dx 09/26/24. Planning Tylenol and hydration but aware that can come for fluids and pain control if pain increases. Declined Flomax. Urology consult placed 10/08 # Incidental 10mm right renal angiomyolipoma. F/U US in 6-[address] earlier which may definitively characterize the lesion precluding ongoing imaging. Will plan to do PP but uncertain which at this time. Encouraged her to establish with a PCP. # Hepatic steatosis noted incidentally. F/U PP with a PCP. # Family history of pyloric stenosis, mother and brother had (both required surgery) #UTI tx by [facility] was not responding to antibiotics, returned to urgent care for retesting 12/06, found to have BV Imaging: Level II (10/01/2024): Impression: 1. Mcduffie intrauterine at 19w 4d gestational age. 2. None of the anomalies commonly detected by ultrasound were evident in the detailed anatomic survey described above, although evaluation of anatomy was suboptimal as noted above. 3. Growth parameters and estimated weight were consistent with appropriate for gestational age pattern of growth. 4. The amniotic fluid volume appeared normal. Recommend a repeat US in ~4 weeks at [facility] in [place] to re-evaluate growth and anatomy, including anatomy that was suboptimally seen today. Level II follow-up (10/29/2024): Impression: 1. Mcduffie at 23w4d gestational age. 2. The remaining anatomic survey was completed, no anomalies commonly detected by ultrasound were identified within the limits of ultrasound. 3. Growth parameters and estimated weight were consistent with gestational age predicted by assigned SUNDAR. 4. The amniotic fluid volume appeared normal. Growth US (11/27/2024): IMPRESSION: 1. Sonographic gestational age 27 weeks 4 days and sonographic due date 02/22/2025. Good correlation with dates. Normal interval growth. 2.Estimated weight 38th percentile. Abdominal circumference 51st percentile. Growth US (01/09/25): 1. Sonographic gestational age 33 weeks 6 days and sonographic due date 02/21/2025. Good correlation with dates. Normal interval growth. 2. Estimated weight 47th percentile. Abdominal circumference 70th percentile. 3. Normal biophysical profile score 12/05. Objective Exam: Objective: Constitutional: Alert and oriented x3, mild distress, coping okay Vital signs stable, see nurse documentation Abdomen: gravid, contractions palpate mild with contractions and soft between Cervix: 4 cm/80%/-2 station/vertex/palpable sutures NST: 150 bpm/moderate variability/accelerations present/decelerations absent/q1-2 min contractions with some clustering noted. Some contractions are not allowing a 60 sec rest period. Burroughs of 8 Vital Signs: Last Vital Signs Temp 98.4 F 02/25/25 20:00 Pulse 88 02/25/25 20:00 Resp 20 02/25/25 20:00 BP 135/73 02/25/25 20:00 Pulse Ox 98 02/25/25 19:59 Plan Plan: ASSESSMENT:?? 24 at 40 4/7 weeks gestation?? complicated by:??Elevated BMI, subclinical hypothyroid, non-obstructing kidney stone, right renal angiomyolipoma (to be followed up PP), BV, hepatic steatosis Labor type: induced, Not yet in active labor?? Category 1 FHR pattern.??? Labor complicated by: induction, BMI 46 GBS negative? PLAN:?? 1. Routine intrapartum cares as ordered. Reviewed options now of pitocin, AROM or pumping to stimulate labor. Abdulaziz was wondering if she could do therapeutic rest. She strongly wants to avoid pitocin and AROM, but an epidural even more so. She feels therapeutic rest is what she needs. I reviewed that prolonging the labor may decrease her coping skills with pain and I cannot guarantee she will be able to sleep. Other pain med potions reviewed for her mothers benefit. I am hesitant to AROM since the back pain may be a sign of an OP baby and did explain this to her, as well as that I am doubtful that pumping to stimulate labor would work since there has only been minimal cervical change after 3 doses of misoprostol. She would like to do therapeutic rest until morning then potentially start pitocin. 2. Monitoring per policy, intermittent if not receiving meds and she is able to sleep. 3. Planning unmedicated . Candidate for analgesia of choice.??? 4. Patient encouraged to reposition and ambulate to promote physiologic labor and , but now rest.?? 5. RN can decrease frequency of intermittent FHT check if patient is sound asleep and contractions likely then has completely stopped. 6. Anticipate NSVB
[2025-02-25] MEDS: SIMETHICONE 80 MG TAB.CHEW PO (22:58)
[2025-02-26] VITALS (45 sets, daily range): BP systolic 90–148; BP diastolic 51–81; PULSE 72–108; RESP 16–17; TEMP 36.7–36.8; O2SAT 93–100
[2025-02-26] MEDS: OXYTOCIN 30 unit/500 ML in NS 30 UNIT/500 ML BAG IVPB (08:39)
[2025-02-26] MEDS: LACTATED RINGERS 1000 ML 1,000 ML 125 ML IV ×3 (08:41→23:02)
--- NOTE | 2025-02-26 09:06 | PM.OBPNL ---
Subjective Date Seen: 02/26/25 Narrative: ?Abdulaziz is coping well with labor pain/contractions. ?Daquan is with her for support. ?She is using rest and relaxation for comfort and pain management. Reviewed recommendation to start IV Pitocin this morning, Abdulaziz is hesitant to start anything to quickly and feels a fast progression of her labor may lead to more interventions. We discussed our protocol for Pitocin and titrating to the response of her body. She requested a cervical exam this morning which is unchanged from last evening. She was open to starting Pitocin this morning, encouraged her to eat breakfast and assured her we will continue to monitor how her body is responding to medications for induction with the goal of steady progression towards active labor. Objective Exam: VSS, afebrile General Appearance:? Calm, cooperative. ?No acute distress. ? Psychiatric Exam: Alert and oriented, appropriate affect Abdomen: Gravid Ctx: ?Q 2-4 min apart. ?Mild ? ? FHTs: ?Baseline: 140. ? ? Variability: Moderate. ?Accels: +. ? ?Decels: ?-. SVE: /-2 Membranes: Intact ? Vital Signs: Last Vital Signs Temp 98.1 F 02/26/25 06:09 Pulse 86 02/26/25 07:44 Resp 16 02/26/25 06:09 BP 128/76 02/26/25 07:44 Pulse Ox 96 02/25/25 21:58 Plan Plan: Assessment:?? at 40.5 weeks gestation?? GBS negative Patient is coping well with challenges of labor.?? Labor type: Induced, Early labor? Category 1 FHR pattern.? complicated by: ?Elevated BMI, subclinical hypothyroid, non-obstructing kidney stone, right renal angiomyolipoma (to be followed up PP), BV, hepatic steatosis Labor complicated by: induction, BMI 46? Plan:?? Start IV Pitocin per protocol Continue with routine intrapartum cares as ordered.?? Patient encouraged to move and change positions to promote physiologic labor and .?? Nonpharmacologic comfort measures per patient preference. Candidate for analgesia of choice if desired. Anticipate progress to NVD. ?
[2025-02-26] MEDS: LEVOTHYROXINE 25 MCG TABLET PO (11:11)
[2025-02-26] MEDS: SIMETHICONE 80 MG TAB.CHEW PO (13:51)
[2025-02-26] MEDS: CALCIUM CARBONATE 500 MG CHEW PO (17:09)
--- NOTE | 2025-02-26 17:27 | PM.OBPNL ---
Subjective Date Seen: 02/26/25 Narrative: ?Abdulaziz is coping well with labor pain/contractions. ?Daquan and her mom are with her for support. ?She is using repositioning and relaxation for comfort and pain management.?She used nitrous during her last cervical exam as she struggles to relax during them. Objective Exam: VSS, afebrile General Appearance:? Calm, cooperative. ?No acute distress. ? Psychiatric Exam: Alert and oriented, appropriate affect Abdomen: Gravid Ctx: ?Q 2-3 min apart. ? ? ?Strong FHTs: ?Baseline: 145. ? ? Variability: moderate. ?Accels: +. ? ?Decels: ?-. SVE: 5/100/-2 Membranes: Intact ? Vital Signs: Last Vital Signs Temp 98.1 F 02/26/25 16:20 Pulse 93 02/26/25 17:12 Resp 17 02/26/25 16:20 BP 137/72 02/26/25 17:12 Pulse Ox 96 02/25/25 21:58 Contractions Pitocin Rate (mU/min): 17 Plan Plan: Assessment:?? at 40.5 weeks gestation?? GBS negative Patient is coping well with challenges of labor.?? Labor type: Induced, Early labor? Category 1 FHR pattern.? complicated by: ?Elevated BMI, subclinical hypothyroid, non-obstructing kidney stone, right renal angiomyolipoma (to be followed up PP), BV, hepatic steatosis Labor complicated by: induction, BMI 46? Plan:?? Continue with IV Pitocin titration per protocol Continue with routine intrapartum cares as ordered.?? Patient encouraged to move and change positions to promote physiologic labor and .?? Nonpharmacologic comfort measures per patient preference. Candidate for analgesia of choice if desired. Patient considering epidural, currently using Nitrous intermittently Anticipate progress to NVD. ?
[2025-02-26] MEDS: LACTATED RINGERS 1000 ML 1,000 ML 1200 ML IV (21:24)
[2025-02-26] MEDS: LIDOCAINE 2% (PF) 5 ML VIAL EPIDURAL (21:50)
[2025-02-26] MEDS: ROPIVACAINE 0.2% 100 ml 100 ML 12 MG EPIDURAL (21:57)
--- NOTE | 2025-02-26 22:01 | PM.ANBPRC ---
[facility] Medical History BMI 40.0-44.9, adult ?Z68.41 - Body mass index [BMI] 40.0-44.9, adult (ICD-10) Subclinical hypothyroidism ?E03.8 - Other specified hypothyroidism (ICD-10) Surgical History [place] teeth removed ?K08.409 - Partial loss of teeth, unspecified cause, unspecified class (ICD-10) History of tonsillectomy and adenoidectomy ?Z90.89 - Acquired absence of other organs (ICD-10) Family History Mother Thyroid disease Maternal Grandmother Diabetes Paternal Grandfather Diabetes Paternal Grandmother Breast cancer Social History Narrative: SOCIAL??? Education: Some college? Work: Day care? Partner: , Daquan??? Lives with: Together with ??? Pets: None at home? Abuse: Denies? Special Diet: Denies Ok with a blood transfusion: yes Culture or jainism beliefs: None ?? RISK FACTORS??? Exercise Times/wk: None??? Hx of Depression and/or Anxiety/other mood disorder: None??? Seat Belt Use: Routinely Smoking: Never Alcohol/day: Denies while ? Caffeine: Coffee, inconsistently, few times per week? Drug Use: Denies?? Chicken Pox: Neither as child nor vaccinated?? MRSA: No What is your current living situation?: I presently have a place to live Problems where you live: no known problems In the past 12 months, utilities in danger of being shut off: no In past 12 months, lack of transportation kept you from medical appts, meetings, work, or getting things needed for daily living: no In the past 12 mos, have been you worried that your food would run out before you had money to buy more?: never true In the past 12 mos, the food you bought just didn't last and you didn't have money to buy more?: never true Smoking Status: Never smoker Do you use any of these nicotine containing products: None How often do you have a drink containing alcohol: never AUDIT-C Alcohol total score: 0 Non-prescribed substance use: denies use How often does anyone, including family, friends and others, physically hurt you: never How often does anyone, including family, friends and others, insult or talk down to you: never How often does anyone, including family, friends and others, threaten you with harm: never How often does anyone, including family, friends and others, scream or curse at you: never Meds Home Medications and Allergies Home Medications ?Medication ?Instructions ?Recorded ?Confirmed ?Type albuterol sulfate 90 mcg/actuation 1 - 2 puff inhalation Q4H PRN 07/01/24 02/25/25 History aerosol inhaler wheezing [id number] 3 fatty no.1 27 1 cap PO DAILY 07/17/24 02/25/25 History mg-1 mg-300 mg capsule ondansetron 4 mg disintegrating 4 mg PO Q8H PRN nausea and 08/13/24 02/25/25 Rx tablet vomiting #30 tabs promethazine 25 mg tablet 25 mg PO Q4-6H PRN nausea and 08/19/24 02/25/25 Rx vomiting #30 tabs omeprazole 20 mg capsule,delayed 20 mg PO QDAY 12/15/24 02/25/25 History release levothyroxine 25 mcg tablet 25 mcg PO QDAY #60 tabs 01/13/25 02/25/25 Rx Allergies Allergy/AdvReac Type Severity Reaction Status Date / Time No Known Drug Allergies Allergy Verified 02/25/25 11:31 Results Vital Signs Vital Signs: Last Vital Signs Temp 98.1 F 02/26/25 20:31 Pulse 79 02/26/25 22:00 Resp 16 02/26/25 20:31 BP 123/62 02/26/25 22:00 Pulse Ox 100 02/26/25 21:56 Weight: 126.915 kg Height: 165.1 cm Anesthesia Procedures Epidural Insertion Patient Location: OB Start Time: 21:20 Stop Time: 22:20 Start Date: 02/26/25 Stop Date: 02/26/25 Reason for Block: procedure for pain Patient Position: sitting Performed By: Jerrica Saravia Preanesthetic Checklist: IV checked, risks and benefits discussed, monitors and equipment checked, pre-op evaluation, timeout performed and anesthesia consent Prep: chlorhexidine gluconate Monitoring: blood pressure monitoring, continuous pulse oximetry and heart rate Approach: midline Vertebral Space: lumbar (1-5) Epidural Technique: PETER saline Needle Type: Tuohy needle Injection Technique: continuous catheter (continuous catheter) Needle gauge: 17 Needle Length (cm): 10 cm Needle Insertion Depth (cm): 9 Catheter Gauge: 19 Catheter Type: multi-orifice Catheter at skin depth (cm): 15 Test Dose Result: negative and lidocaine 1.5% with epinephrine 1 to 200,000
[2025-02-26] MEDS: ONDANSETRON 2 MG/ML inj 4 MG IV (22:58)
--- NOTE | 2025-02-26 23:28 | PM.OBPNL ---
Subjective Date Seen: 02/26/25 Narrative: ?Abdulaziz is coping well with labor pain/contractions. ?Daquan and her mom are with her for support. ?She recently had an epidural placed for comfort and pain management.?She currently is on 20mu of IV Pitocin. Reviewed R/B/A to AROM and placing IUPC with FSE with patient and family. After some discussion Abdulaziz was agreeable to this and AROM done for large amount of clear fluid. FSE and IUPC placed without problems. Objective Exam: VSS, afebrile General Appearance:? Calm, cooperative. ?No acute distress. ? Psychiatric Exam: Alert and oriented, appropriate affect Abdomen: Gravid Ctx: ?Q 2-5 min apart. ? ?Moderate ?now has IUPC in place FHTs: ?Baseline: 140. ? ? Variability: moderate. ?Accels: +. ? ?Decels: ?-. SVE: 5/100/-2 Membranes: ?AROM clear fluid Vital Signs: Last Vital Signs Temp 98.1 F 02/26/25 20:31 Pulse 86 02/26/25 23:17 Resp 16 02/26/25 20:31 BP 100/53 L 02/26/25 23:17 Pulse Ox 100 02/26/25 21:56 Contractions Pitocin Rate (mU/min): 20 Assessment Assessment: induction ongoing Amniotic Membrane Status: AROM Plan Plan: Assessment:?? at 40.5 weeks gestation?? GBS neg Patient is coping well with challenges of labor.?? Labor type: Induced, Early labor? Category 1 FHR pattern.? IUPC and FSE placed complicated by: Elevated BMI, subclinical hypothyroid, non-obstructing kidney stone, right renal angiomyolipoma (to be followed up PP), BV, hepatic steatosis Labor complicated by: induction, BMI 46?? Plan:?? Continue with IV Pitocin titrate per protocol, may increase up to 30 mu/hr as appropriate Continue with routine intrapartum cares as ordered.?? Patient encouraged to move and change positions to promote physiologic labor and .?? Epidural infusing per anesthesia Anticipate progress to NVD. ?
[2025-02-27] VITALS (36 sets, daily range): BP systolic 77–154; BP diastolic 42–89; PULSE 76–134; RESP 16–18; TEMP 36.6–37.7; O2SAT 97–100
[2025-02-27] MEDS: CALCIUM CARBONATE 500 MG CHEW PO (01:01)
[2025-02-27] MEDS: LIDOCAINE 2% (PF) 5 ML VIAL EPIDURAL (01:42)
[2025-02-27] MEDS: PHENYLEPHRINE 100 MCG/ML SYRINGE IVP ×2 (02:51→03:30)
[2025-02-27] MEDS: ePHEDrine sulfate 5 MG/ML inj 10 MG IVP ×2 (03:05→03:33)
[2025-02-27] MEDS: ROPIVACAINE 0.2% 100 ml 100 ML 12 MG EPIDURAL (04:18)
--- NOTE | 2025-02-27 05:07 | W.PM.OBVAGDE ---
OB Procedure Vag Delivery Mother Details Mother Details: The patient is a 24 year-old, 1, Para 0, admitted on 02/25/25 at 40.6 weeks gestation. : 1 Para: 1 Weeks Gestation: 40.6 Admission Date: 02/26/25 Additional Details Amniotic Membrane Status: AROM Amniotic Membrane Rupture Date: 02/26/25 Amniotic Membrane Rupture Time: 22:37 Amniotic Membrane Fluid Description: Clear Analgesia/Anesthesia Type: Epidural Waterbirth: No Pitcoin: Yes Intrapartal Events: Labor Induction Induction Method: per misoprostol protocol, per pitocin protocol and AROM Labor Onset: 22:37 Complete: 04:00 Pushin:10 Heart: heart tones during second stage were Category 2 with deep variables over the last 7 minutes with contractions while baby was . Delivery Details Delivery Date: 02/27/25 Delivery Time: 04:41 Route of delivery: Infant Gender: Male Viability: Alive; Heart Rate Present Position at Delivery: OA Delivery Details: 24?y.o?at 40.6 weeks.? Abdulaziz was admitted for an induction of labor for elevated BMI in . She was given 3 doses of Cytotec then was started on IV Pitocin per protocol. She elected to have an epidural for pain relief which worked well for her. During second stage she was feeling a lot of hip pain and pressure but otherwise had adequate pain relief. AROM for clear fluid was done at 2237. She then progressed normally to complete.? ? She became complete at 0400.??She pushed in right tilt positions effectively.? Spontaneous vaginal delivery at 0441 of?a viable?male infant.??Delivered in vertex OA position.?There was a nuchal cord that was not reduced before delivery, baby was somersaulted through then cord was reduced. ?Shoulders delivered easily.? Spontaneous cry noted.?? placed on maternal abdomen.??Cord?was clamped and cut after a 5+ minute delay.??Nose and mouth were bulb suctioned.? Shoulder dystocia: no? Nuchal cord: yes times one? Meconium stained?fluid: no? Water : no? ? ? 7 at 1 minute and 9 at 5 minutes.? Weight is pending. ? Placenta delivered spontaneously and?complete?at 0444 with a?3 vessel?cord.?? Bleeding controlled with fundal massage and?pitocin?for AMTSL.? ? Lacerations:??1st degree vaginal laceration, not bleeding, not repaired? ? Bleeding?post delivery?was: minimal. ?The fundus was firm to palpation.? Blood loss: 50?mL.? Blood loss measurement type: QBL? ? ? Sponge,?lap?and needles counts are correct.? Mother and infant were stable after delivery.? 1 Minute Interval Total Score: 7 5 Minute Interval Total Score: 9 Additional Details Shoulder Dystocia: No Placenta Delivery Time: 04:44 Placental Delivery Description: Spontaneous Procedure Done: Global Blood Loss: 50 Laceration: Vaginal - 1st Degree Blood Loss Measurement Type: QBL Bakri Used: No Sponge/Need Count Correct: Yes Cord Vessel Description: 3 Vessels, Nuchal Cord, Loose and Delivered through Event Summary Status: Mother and infant were stable after delivery. Disposition: floor
[2025-02-27] MEDS: ACETAMINOPHEN 500 MG TABLET 1000 MG PO ×3 (06:00→18:48)
[2025-02-27] MEDS: LEVOTHYROXINE 25 MCG TABLET PO (06:00)
[2025-02-27] MEDS: IBUPROFEN 600 MG TABLET PO ×3 (09:10→21:35)
[2025-02-27] MEDS: DOCUSATE SODIUM 100 MG CAPSULE PO (09:10)
[2025-02-27] MEDS: FAMOTIDINE 20 MG TABLET PO (10:51)
--- NOTE | 2025-02-27 10:52 | PM.ANPOST ---
Post Anesthesia Note Post Anesthesia Note Patient seen: Inpatient Respiratory Status: adequate Cardiovascular Status: adequate Mental Status: baseline Pain: adequate Temp: baseline Anesthetic awareness: N/A Complications: none Follow care: none
[2025-02-27 11:22] LABS: Alanine Aminotransferase* 15 U/L (4-35); Aspartate Amino Transferase* 26 U/L (12-35); Blood Urea Nitrogen* 9 mg/dL (5-24); Creatinine* 0.6 mg/dL (0.5-1.5); Est. Creatinine Clearance* 128.98; Estimated Glomerular Filt Rate 128 ml/min; Hematocrit* 27.1 % (33.0-51.0); Hemoglobin* 8.9 gm/dL (12.0-16.0); Mean Corpuscular HGB Conc 33 gm/dL (32-36); Mean Corpuscular Hemoglobin 28 pg (26-34); Mean Corpuscular Volume 84 fL (80-100); Red Blood Count* 3.24 m/uL (4.00-5.20); White Blood Count* 12.28 K/uL (4.50-11.00)
[2025-02-27 11:25] LABS: Slide Review Reflex No
[2025-02-27] MEDS: ENOXAPARIN 40 MG/0.4 ML INJ SUBCUT (16:59)
[2025-02-27] MEDS: SIMETHICONE 80 MG TAB.CHEW PO (19:59)
[2025-02-28 00:01] VITALS: BP 120/73; PULSE 86; RESP 16; TEMP 36.7; O2SAT 97
[2025-02-28] MEDS: ACETAMINOPHEN 500 MG TABLET 1000 MG PO ×3 (01:19→17:04)
[2025-02-28] MEDS: DOCUSATE SODIUM 100 MG CAPSULE PO ×2 (01:23→08:02)
[2025-02-28 04:46] VITALS: BP 114/78; PULSE 86; RESP 20; TEMP 36.4; O2SAT 98
[2025-02-28] MEDS: IBUPROFEN 600 MG TABLET PO ×2 (04:49→11:42)
[2025-02-28 06:52] LABS: Hemoglobin* 8.0 gm/dL (12.0-16.0)
[2025-02-28 08:04] VITALS: BP 122/79; PULSE 79; RESP 16; TEMP 36.3; O2SAT 98
--- NOTE | 2025-02-28 10:12 | PM.OBPNVD1 ---
OB - PN:Subj Subjective Date Seen: 02/28/25 Narrative: Abdulaziz is a 24 y.o. who was admitted to L & D for induction of labor.? She had an uncomplicated NVD.? ?? The patient feels well.? The pain is well controlled with current medications.? She has no new complaints.? She is breast feeding and reports things are going well. Hs been getting help with latch and using a nipple sheild. ? the patient has done well.? Vitals have been stable.? She has remained afebrile.? Has a good appetite, is tolerating a general diet.? She is voiding without difficulty.? She is passing gas and has not had a bowel movement.? She is ambulating and denies any dizziness.? Has Small amount of rubra lochia.?Hemoglobin this morning is 8.0, pt denies any shortness of breath or dizziness when up. She did receive 4L of fluid in labor and QBL was 50ml at time of delivery. One other measurement of blood loss a few hours later of 91ml, total QBL 141ml. Does not correlate well with significant blood loss as cause of anemia for this reason will start oral iron and defer a blood transfusion unless she has further symptoms or bleeding. Pt aware of this plan and agreeable. OB - PN: Obj Exam Physical Exam: Vital signs: Temp Pulse Resp BP Pulse Ox O2 Del Method 97.4 F L 79 16 122/79 98 Room Air 02/28/25 08:04 02/28/25 08:04 02/28/25 08:04 02/28/25 08:04 02/28/25 08:04 02/28/25 08:04 Narrative: GENERAL APPEARANCE:? normal affect, alert, no distress? MOOD:? appropriate? HEENT: normocephalic, neck supple, full ROM? CHEST:? Symmetrical chest wall movement.? Normal respiratory effort.? Clear to auscultation ? HEART:? regular rate and rhythm? ABDOMEN:? soft, non-tender. Uterine fundus is firm, at Umbilicus, Midline and is appropriate for the stage of recovery.? Bowel sounds present.? PERINEUM:? mild edema of the perineum, there is a 1st degree laceration that is healing well.? EXTREMITIES:? normal and 2+ edema? OB - PN: Obj Data Labs Labs: Laboratory Results - last 24 hr 02/25/25 02/27/25 02/28/25 13:23 10:55 06:15 WBC 12.28 H RBC 3.24 L Hgb 8.9 L 8.0 L Hct 27.1 L MCV 84 MCH 28 MCHC 33 Plt Count 131 L BUN 9 Creatinine 0.6 Estimated Creat Clear 128.98 Estimated GFR 128 Uric Acid 4.8 AST 26 ALT 15 RPR Screen Non Reactive OB - PN: A/P Delivery Assessment and Plan (1) Subclinical hypothyroidism: Status: Acute (2) Hepatic steatosis: Status: Acute (3) Nephrolith: Problem details: 8mm Status: Acute (4) Angiomyolipoma of right kidney: Problem details: Incidental 10 mm right renal cortical finding consistent with an angiomyolipoma for which follow-up ultrasound is recommended in 6-12 months. Alternatively, CT could be performed earlier which may definitively characterize lesion is a fat containing angiomyolipoma and thereby preclude ongoing imaging surveillance. Status: Acute (5) BMI 40.0-44.9, adult: Status: Acute (6) care and examination immediately after delivery: Status: Acute (7) Lactating mother: Status: Acute Plan day: 1 Plan: routine care Comments: G 1 P 1 status post uncomplicated NVD??? 1.? Continue route PP cares? 2.? .? May see if desired? 3.? Anticipate discharge home tomorrow? 4. ?Acute anemia.? Iron supplement ordered
[2025-02-28] MEDS: MEASLES,MUMPS,RUBELLA VACC/PF 1 DOSE INJ 1 EACH SUBCUT (13:26)
[2025-02-28] MEDS: FERROUS SULFATE 325 MG TABLET PO (13:26)
[2025-02-28] MEDS: ENOXAPARIN 40 MG/0.4 ML INJ SUBCUT (17:04)
[2025-02-28 17:05] VITALS: BP 115/75; PULSE 87; RESP 16; TEMP 36.6; O2SAT 98
[2025-02-28 19:44] VITALS: BP 125/81; PULSE 100; RESP 22; O2SAT 97
[2025-03-01] MEDS: IBUPROFEN 600 MG TABLET PO (03:36)
[2025-03-01 03:42] VITALS: BP 121/80; PULSE 87; RESP 20; TEMP 36.6; O2SAT 97
--- NOTE | 2025-03-01 10:15 | P.DS_ITS ---
DS: Providers Provider Date Seen: 03/01/25 Date of admission: 02/25/25 11:08 Primary care physician: Maday Samuels CNM Admitting Clinician: Lesvai Pyle CNM Attending Physician on discharge: Arnold Jewell CNM Date of Discharge: 03/01/25 DS: Diagnosis Discharge Diagnosis (1) care and examination immediately after delivery: Status: Acute (2) Lactating mother: Status: Acute Exam Narrative: Exam Narrative: VSS, afebrile GENERAL APPEARANCE: ?normal affect, alert, no distress MOOD: ?appropriate HEENT: normocephalic, neck supple, full ROM CHEST: ?Symmetrical chest wall movement. ?Normal respiratory effort. ?Clear to auscultation HEART: ?regular rate and rhythm ABDOMEN: ?soft, non-tender. Uterine fundus is firm, at Umbilicus, Midline and is appropriate for the stage of recovery. ?Bowel sounds present. PERINEUM: ?mild edema of the perineum, 1st degree not repaired and not bleeding. EXTREMITIES: ?normal and 2+ edema Const: Vital Signs, click to edit/add: Vital Signs - 24 hr 02/28/25 17:05 02/28/25 19:44 03/01/25 03:42 Temperature 97.8 F 97.9 F Pulse Rate [Pulse Oximeter] 87 100 87 Respiratory Rate 16 22 20 Blood Pressure [Le ft Arm] 115/75 125/81 121/80 Pulse Oximetry 98 97 97 Oxygen Delivery Me thod Room Air Room Air Room Air Documenting provider has reviewed patient's vital signs: yes OB - DS: Summary Hospital Course Hospital Course: Abdulaziz is a 24 y.o. who was admitted to L & D for induction of labor. ?She had an uncomplicated NVD.?The patient feels well. ?The pain is well controlled with current medications. ?She has no new complaints. ?She is breast feeding and reports things are going well. She has been working with nursing for latch and a feeding plan at home.? the patient has done well.? Vitals have been stable.? She has remained afebrile.? Has a good appetite, is tolerating a general diet. ?She is voiding without difficulty.? She is passing gas and has had a bowel movement.? She is ambulating and denies any dizziness.? Has Small amount of rubra lochia. ?She is undecided on her plan for prevention. Peripartum Data Infant delivery method: Vaginal Laceration description: Vaginal - 1st Degree complications: none Infant Gender: Male Infant Discharge Plan: Home Status at Discharge Functional status at discharge: independent ambulation Overall status at discharge: patient is progressing back to baseline Time Spent with Patient Time attestation: Total time spent providing and/or coordinating discharge services: Time spent: Less than 30 minutes Discharge Plan Discharge Disposition: Home, Self-Care Date of Admission: 02/25/25 11:08 Attending Provider on Discharge: Arnold Jewell Primary Care Provider: Maday Samuels Condition: Stable Anticipated Discharge Date/Time: 03/01/25 12:00 Discharge Medications: New acetaminophen 500 mg Tablet 1,000 mg PO Q6H PRNQty: 0 0RF docusate sodium 100 mg Capsule 100 mg PO BID PRNQty: 90 0RF ferrous sulfate 325 mg (65 mg iron) Tablet 325 mg PO Q48H Qty: 30 0RF ibuprofen 600 mg Tablet 600 mg PO Q6H PRNQty: 60 0RF Continued [id number] 3 fatty no.1 27-1-300 mg capsule 1 cap PO DAILY omeprazole 20 mg capsule,delayed release(DR/EC) 20 mg PO QDAY albuterol sulfate 90 mcg/actuation HFA aerosol inhaler 1 - 2 puff INHALATION Q4H PRN (Reason: wheezing) Discontinued ondansetron 4 mg tablet,disintegrating 4 mg PO Q8H PRN (Reason: nausea and vomiting) Qty: 30 0RF promethazine 25 mg tablet 25 mg PO Q4-6H PRN (Reason: nausea and vomiting) Qty: 30 0RF levothyroxine 25 mcg tablet 25 mcg PO QDAY Qty: 60 0RF Discharge Orders: Discharge Order (Routine); Ordered 03/01/25 Ordered By: Arnold Jewell Patient Education: OB Over the Counter Medication Information, OB Vaginal/Breast Feeding Additional Instructions: Discharge instructions were reviewed with the patient including signs and symptoms of infection and home going medications Nothing vaginally for 6 weeks: no tampons or intercourse Off Work or School for 6 weeks Symptoms to report to doctor: * Bleeding that saturates more than one pad per hour * Passing clots larger than the size of a golf ball * Pain not relieved by prescribed medication * Fever above 100.4 degrees Fahrenheit * A foul vaginal odor * Difficulty in emotions, mood, and functions * Thoughts of hurting yourself and/or * Painful, reddened area in your breast * Any drainage, redness, or tenderness in your IV/epidural site * Severe headache that doesn't improve after taking medications * Changes in vision, including temporary loss of vision, blurred vision, and/or light sensitivity * Upper abdominal pain (usually under ribs on the right side) * Decrease in urination or painful, frequent urinating * Chest pain * Shortness of breath * Tenderness or pain with redness and/swelling in the calf(s) of your leg 2-week visit: discuss feeding concerns, review control options and screen for anxiety/depression. 6-week visit for an annual exam. consultation services are available to all mothers and babies for the first year after delivery.? To make an appointment, please call [phone]. Activity Level: Activity as Tolerated Discharge Diet: Regular Follow Up Appointments: [facility] [Provider Group] Forms: [employer] Info Instructions
[2025-03-01 10:32] VITALS: BP 122/79; PULSE 99; RESP 16; TEMP 36.6; O2SAT 97
== END 2025-03-01 14:10 | disposition home or self-care (01) | DRG 560 ==
PROVIDERS: Advanced Practice Midwife; Admitting Provider Midwife; PCP Midwife, Lay; Visit Provider Midwife
DX: O99.214 Obesity complicating childbirth (principal); E66.9 Obesity, unspecified; O99.284 Endocrine, nutritional and metabolic diseases complicating childbirth; E03.8 Other specified hypothyroidism; Z82.79 Family history of other congenital malformations, deformations and chromosomal abnormalities; K76.0 Fatty (change of) liver, not elsewhere classified; N20.0 Calculus of kidney; D17.71 Benign lipomatous neoplasm of kidney; O70.0 First degree perineal laceration during delivery; D64.9 Anemia, unspecified; O90.81 Anemia of the puerperium; Z3A.40 40 weeks gestation of pregnancy; Z37.0 Single live birth
CPT/HCPCS: 01967; 36415; 59200; 82565; 84450; 84460; 84520; 84550; 85018; 85025; 85027; 86592; 86850; 86900; 86901; A9270; J1650; J2270; J2405; J2795; J3010; J7120

== ENCOUNTER 2025-03-16 12:20 | Outpatient (CLI) | payer BC, SELFPAY | END 2025-03-16 12:21 | disposition home or self-care (01) | LOC: NFLDREF 03-20 09:56 | PROVIDERS: PCP Midwife, Lay; Referring Provider Midwife, Lay; Visit Provider Advanced Practice Midwife | DX: R30.9 Painful micturition, unspecified (principal) | CPT/HCPCS: 87086 ==

== ENCOUNTER 2025-04-13 14:05 | Outpatient (CLI) | payer BC, SELFPAY ==
[2025-04-15 21:47] LABS: HPV Source Cervical
[2025-04-17 09:38] LABS: Pap Test Digital Imaging Done
== END 2025-04-13 14:06 | disposition home or self-care (01) ==
PROVIDERS: PCP Midwife, Lay; Visit Provider Advanced Practice Midwife
DX: Z12.4 Encounter for screening for malignant neoplasm of cervix (principal); Z13.9 Encounter for screening, unspecified
CPT/HCPCS: 84443; 87624; 87625; 88141; 88142; 88175